=== PATIENT | female | born 1955 | race American Indian/Alaskan Native ===

== ENCOUNTER 2018-11-24 11:18 | Inpatient (IN) | payer MEDICARE, MEDICAID ==
[2018-11-24 18:44] VITALS: BMI 23.3
[2018-11-25] MEDS: Pantoprazole 20 mg EC Tab PO SCH ×2 (06:28→16:40)
[2018-11-25 06:52] LABS: ALB/GLOB RATIO 1.2 (1.0-2.1); ALBUMIN 3.7 g/dL (3.5-5.0); ALT/SGPT 87 U/L (9-52); AST/SGOT 73 U/L (14-36); BLOOD UREA NITROGEN 19 mg/dl (7-17); CALCIUM 9.4 mg/dL (8.4-10.2); GFR NON-AFRICAN AMERICAN > 60
[2018-11-25 06:53] LABS: HEMOGLOBIN 12.8 g/dL (12.0-16.0); MEAN CELL VOLUME 68.7 fl (81.0-99.0); MEAN CORPUSCULAR HEMOGLOBIN 22.2 pg (27.0-31.0); MEAN CORPUSCULAR HGB CONC 32.4 g/dL (33.0-37.0); RBC 5.77 Mil/uL (3.80-5.20); RED CELL DISTRIBUTION WIDTH 14.3 % (11.5-14.5); WHITE BLOOD COUNT 7.7 K/uL (4.8-10.8)
[2018-11-25] MEDS ORDERED: Influenza Vaccine 60 mcg/0.5 mL SYR (4YR UP) IM ONE ×2 (07:25→09:00)
[2018-11-25] MEDS: Potassium Chloride 20 mEq ER Tab PO SCH (07:57)
[2018-11-25] MEDS ORDERED: Pneumococcal 23-Valent Vaccine IM ONE (09:00)
--- NOTE | 2018-11-25 12:11 | PCM.OPOC ---
Physiatry Overall Plan of Care - Overall Plan of Care Estimated Length of Stay in Weeks: 3 Rehab Impairment: Mobility, Gait, Cognition, Speech, Balance, Coordination Etiologic Diagnosis: Cerebrovascular Accident Rehab/Medical Prognosis: Fair - Anticipated Interventions Physical Therapy:: Yes Number of Hours: 1 Number of times per week: 5 Number of Week(s) Duration: 3 Occupational Therapy:: Yes Number of Hours: 1 Number of times per week: 5 Number of Week(s) Duration: 3 Speech Therapy:: Yes Number of Hours: 1 Number of times per week: 5 Number of Week(s) Duration: 1 Recreational Therapy:: Yes Number of Hours: 1 Number of times per week: 5 Number of Week(s) Duration: 3 - Therapy Goals Bed Mobility: Independent Ambulation: Independent Functional Positional Changes:: Independent - Functional Status Prior to Admission: independent Current Status: needs assistance - Functional Outcomes Functional Outcomes: good - Discharge Plan Identification of Barriers to Discharge: Cognition Discharge Destination: Home
--- NOTE | 2018-11-25 12:13 | PCM.PSYTMC ---
Acute Rehab Team Conference - - Vital Signs: Vital Signs (Last 8 Hours): Vital Signs 11/25/18 11/25/18 11/25/18 07:50 08:00 09:21 Temperature 98.2 F 98.2 F Pulse Rate 74 74 74 Respiratory 18 18 Rate Blood Pressure 122/79 122/79 122/79 O2 Sat by Pulse 100 Oximetry Pain: 0 - Precautions: Precautions: Fall Prevention, Aspiration, Pressure Ulcer - Consults: Comment: Dr. Marion - Toileting: Toileting: Contact Guard - Bladder Management: Bladder Pattern: Normal Voiding Method: Toilet, Bedpan Bladder Management: Contact Guard - Transfers: Transfers: Contact Guard - ADL's: ADL's: Contact Guard - Goals/Time Frame: Comment: increase independance - Provider: Registered Nurse:: Melia Mantilla Nutrition - Current Diet Current Diet/Supplement/Feedings: Heart Healthy diet - Appetite Percent Meal Consumed: 75-100% - Assessment/Goals/Time Frame Assessments/Goals/Time Frame: To follow as per nutrition protocol - Provider Provider: Debra Coe Case Management - Psychosocial Assessment Support Systems: Stacey Vasquez ODEC) [phone] Psychological Interventions/Needs: patient is AAOx3 and able to verbalize needs. Discharge Concerns: Pt has a history of multiple falls and substance abuse. Pt is still unsteady. Patient/Family Meeting: CM met with patient and rehab team. Intervention/Goal/Outcome: 1. Goal: Intermittent Supervision 2. Plan: team con ference with Dr. Marion 3. DME needs 4. complete patient's psychosocial assessment 5. f/u appointments 6. emotional support - Discharge Plan Discharge Plan: Home with services Home Services: [facility]? - Provider Provider: Stefanie Dolan License Number: [id number] Rehabilitation Plan - Treatment Plan Treatment Plan: Physical Therapy, Occupational Therapy, Speech, Dietary, Patient/Family Education - Recommendation Recommendation: Physical Therapy, Occupational Therapy, Speech, Dietary, Patient/Family Education - Discharge Plan Discharge to: Home
--- NOTE | 2018-11-25 13:09 | PCM.CPAPS ---
History of Present Illness - History of Present Illness History of Present Illness: 63 year old female admitted to acute rehab with diagnosis of CVa,HTN, syncope, R ankle fracture now for rehab Review of Systems - Musculoskeletal Musculoskeletal: Abnormal Gait, Muscle Weakness Past Patient History - Infectious Disease Hx of Infectious Diseases: None - Past Medical History & Family History Past Medical History?: Yes - Past Social History Smoking Status: Current Some Days Smoker - CARDIAC Hx Cardiac Disorders: Yes Hx Hypertension: Yes - PULMONARY Hx Respiratory Disorders: No - NEUROLOGICAL Hx Neurological Disorder: Yes Hx Syncope: Yes - HEENT Hx HEENT Problems: No - RENAL Hx Chronic Kidney Disease: No - ENDOCRINE/METABOLIC Hx Endocrine Disorders: No - HEMATOLOGICAL/ONCOLOGICAL Hx Blood Disorders: Yes Hx Hepatitis C: Yes - INTEGUMENTARY Hx Dermatological Problems: No - MUSCULOSKELETAL/RHEUMATOLOGICAL Hx Musculoskeletal Disorders: Yes Hx Falls: Yes Hx Rhabdomyolysis: Yes - GASTROINTESTINAL Hx Gastrointestinal Disorders: No - GENITOURINARY/GYNECOLOGICAL Hx Genitourinary Disorders: No - PSYCHIATRIC Hx Substance Use: Yes (Opioid abuse, Heroin Abuse) - SURGICAL HISTORY Hx Surgeries: Yes Other/Comment: Hx: Right Ankle ORIF 2017 - ANESTHESIA Hx Anesthesia: Yes Hx Anesthesia Reactions: No Meds Allergies/Adverse Reactions: Allergies Allergy/AdvReac Type Severity Reaction Status Date / Time No Known Allergies Allergy Verified 11/24/18 20:12 - Medications Medications: Current Medications Amlodipine Besylate (Norvasc) 10 mg PO DAILY [facility] Last Admin: 11/25/18 08:00 Dose: 10 mg Aspirin (Ecotrin) 81 mg PO DAILY [facility] Last Admin: 11/25/18 08:00 Dose: 81 mg Atorvastatin Calcium (Lipitor) 80 mg PO HS [facility] Last Admin: 11/24/18 21:41 Dose: 80 mg Clonidine HCl (Catapres) 0.1 mg PO Q6H PRN PRN Reason: SBP > 150 Losartan Potassium (Cozaar) 100 mg PO HS [facility] Last Admin: 11/24/18 21:41 Dose: 100 mg Ondansetron HCl (Zofran Inj) 4 mg IVP Q6H PRN PRN Reason: Nausea/Vomiting Ondansetron HCl (Zofran Odt) 4 mg PO Q8H PRN PRN Reason: Nausea/Vomiting Pantoprazole Sodium (Protonix Ec Tab) 20 mg PO 0600,1600 [facility] Last Admin: 11/25/18 06:28 Dose: 20 mg Potassium Chloride (K-Dur 20 Meq Er Tab) 40 meq PO BRK [facility] Last Admin: 11/25/18 07:57 Dose: 40 meq Tramadol HCl (Ultram) 50 mg PO TID PRN PRN Reason: Pain 4-10 Zolpidem Tartrate (Ambien) 5 mg PO HS PRN PRN Reason: Insomnia Physical Exam - Constitutional Appears: Well - Eye Exam Eye Exam: EOMI, Normal appearance, PERRL Pupil Exam: NORMAL ACCOMODATION, PERRL - ENT Exam ENT Exam: Mucous Membranes Moist, Normal Exam - Neck Exam Neck exam: Positive for: Normal Inspection - Respiratory Exam Respiratory Exam: Clear to Auscultation Bilateral, NORMAL BREATHING PATTERN - Cardiovascular Exam Cardiovascular Exam: REGULAR RHYTHM - GI/Abdominal Exam GI & Abdominal Exam: Normal Bowel Sounds - Rectal Exam Rectal Exam: NORMAL INSPECTION - Exam External exam: NORMAL EXTERNAL EXAM - Extremities Exam Extremities exam: Positive for: normal inspection - Back Exam Back exam: NORMAL INSPECTION - Neurological Exam Neurological exam: Alert, CN II-XII Intact Additional comments: muscle strength 3/5 problems with balance and coordination - Psychiatric Exam Psychiatric exam: Normal Affect, Normal Mood - Skin Skin Exam: Intact, Normal Color Results - Vital Signs Recent Vital Signs: Last Vital Signs Temp 98.2 F 11/25/18 09:21 Pulse 74 11/25/18 09:21 Resp 18 11/25/18 09:21 BP 122/79 11/25/18 09:21 Pulse Ox 100 11/25/18 09:21 - Labs Result Diagrams: 11/25/18 06:29 11/25/18 06:29 Labs: Laboratory Results - last 24 hr 11/25/18 11/25/18 06:29 06:29 WBC 7.7 RBC 5.77 H Hgb 12.8 Hct 39.7 MCV 68.7 L MCH 22.2 L MCHC 32.4 L RDW 14.3 Plt Count 328 Sodium 137 Potassium 4.1 Chloride 104 Carbon Dioxide 26 Anion Gap 11 BUN 19 H Creatinine 0.7 Est GFR ( Amer) > 60 Est GFR (Non-Af Amer) > 60 Random Glucose 106 H Calcium 9.4 Total Bilirubin 0.5 AST 73 H D ALT 87 H Alkaline Phosphatase 75 Total Protein 6.9 Albumin 3.7 Globulin 3.2 Albumin/Globulin Ratio 1.2 Assessment & Plan (1) Syncope Status: Acute (2) CVA (cerebral vascular accident) Assessment and Plan: patient admitted for acute rehab with diagnosis of CVa of PT, Ot , rec and speech therapy. other diagnosi of HTn , syncope, r ankle fracute plan for Dc for home. Golas for Modified independence, previously In dependent now needs assistance. Lenght of stay for 3 weeks Status: Acute - Functional Status Prior to Admission: Independent Current Status: Now needs assistance, in adls, transfers and gait Impairment Code: cva 01.1
--- NOTE | 2018-11-26 00:38 | CP.PCM.HP ---
History of Present Illness - History of Present Illness History of Present Illness: CC: Subacue CVA, and Chronic Hamorrhage, and recurrent Falls HPI: A 63 years old female with past medical history of hypertension had a syncopal episode on 11/15/18, and again another fall on 11/15/18 this time hitting her head when she went to the emergency room of [facility]. On CT head on the same day showed possible subacute right thalamic infarct. On MRI of the brain showed chronic appearing hematoma in the right posterior thalamus. Which was read as a chronic hematoma. Patient admits recurrent falls. Patient was transferred to [facility] the acute [facility]hab due to subacute CVA and multiple falls. Present on Admission - Present on Admission Any Indicators Present on Admission: No Review of Systems - Review of Systems All systems: reviewed and no additional remarkable complaints except Review of Systems: all 12 are negative except as per HPI Past Patient History - Infectious Disease Hx of Infectious Diseases: None - Past Medical History & Family History Past Medical History?: Yes - Past Social History Smoking Status: Current Some Days Smoker - CARDIAC Hx Cardiac Disorders: Yes Hx Hypertension: Yes - PULMONARY Hx Respiratory Disorders: No - NEUROLOGICAL Hx Neurological Disorder: Yes Hx Syncope: Yes - HEENT Hx HEENT Problems: No - RENAL Hx Chronic Kidney Disease: No - ENDOCRINE/METABOLIC Hx Endocrine Disorders: No - HEMATOLOGICAL/ONCOLOGICAL Hx Blood Disorders: Yes Hx Hepatitis C: Yes - INTEGUMENTARY Hx Dermatological Problems: No - MUSCULOSKELETAL/RHEUMATOLOGICAL Hx Musculoskeletal Disorders: Yes Hx Falls: Yes Hx Rhabdomyolysis: Yes - GASTROINTESTINAL Hx Gastrointestinal Disorders: No - GENITOURINARY/GYNECOLOGICAL Hx Genitourinary Disorders: No - PSYCHIATRIC Hx Substance Use: Yes (Opioid abuse, Heroin Abuse) - SURGICAL HISTORY Hx Surgeries: Yes Other/Comment: Hx: Right Ankle ORIF 2017 - ANESTHESIA Hx Anesthesia: Yes Hx Anesthesia Reactions: No Meds Allergies/Adverse Reactions: Allergies Allergy/AdvReac Type Severity Reaction Status Date / Time No Known Allergies Allergy Verified 11/24/18 20:12 Physical Exam - Constitutional Appears: No Acute Distress, Chronically Ill - Head Exam Head Exam: ATRAUMATIC, NORMAL INSPECTION, NORMOCEPHALIC - Eye Exam Eye Exam: EOMI, Normal appearance, PERRL Pupil Exam: NORMAL ACCOMODATION, PERRL - ENT Exam ENT Exam: Mucous Membranes Moist, Normal Exam - Neck Exam Neck exam: Positive for: Normal Inspection - Respiratory Exam Respiratory Exam: Clear to Auscultation Bilateral, NORMAL BREATHING PATTERN - Cardiovascular Exam Cardiovascular Exam: REGULAR RHYTHM, +S1, +S2 - GI/Abdominal Exam GI & Abdominal Exam: Normal Bowel Sounds, Soft. absent: Tenderness - Extremities Exam Extremities exam: Positive for: normal inspection - Back Exam Back exam: NORMAL INSPECTION - Neurological Exam Neurological exam: Abnormal Gait, Alert, CN II-XII Intact, Motor Sensory Deficit, Oriented x3, Reflexes Normal - Psychiatric Exam Psychiatric exam: Normal Affect, Normal Mood - Skin Skin Exam: Dry, Intact, Normal Color, Warm Results - Vital Signs Recent Vital Signs: Last Vital Signs Temp 97.3 F L 11/25/18 22:00 Pulse 76 11/25/18 22:00 Resp 20 11/25/18 22:00 BP 123/64 11/25/18 22:00 Pulse Ox 99 11/25/18 22:00 - Labs Result Diagrams: 11/25/18 06:29 11/25/18 06:29 Labs: Laboratory Results - last 24 hr 11/25/18 11/25/18 06:29 06:29 WBC 7.7 RBC 5.77 H Hgb 12.8 Hct 39.7 MCV 68.7 L MCH 22.2 L MCHC 32.4 L RDW 14.3 Plt Count 328 Sodium 137 Potassium 4.1 Chloride 104 Carbon Dioxide 26 Anion Gap 11 BUN 19 H Creatinine 0.7 Est GFR ( Amer) > 60 Est GFR (Non-Af Amer) > 60 Random Glucose 106 H Calcium 9.4 Total Bilirubin 0.5 AST 73 H D ALT 87 H Alkaline Phosphatase 75 Total Protein 6.9 Albumin 3.7 Globulin 3.2 Albumin/Globulin Ratio 1.2 Assessment & Plan (1) Hypertension Status: Acute (2) CVA (cerebral vascular accident) Assessment and Plan: Subacute Thalamic and Chronic Hemorrhagic CVA Status: Acute (3) Falls frequently Status: Acute (4) Syncope Status: Acute - Assessment and Plan (Free Text) Plan: C/w ASA, Statin, All Home meds Physiatry Consult PT/OT, and Speech Therapy
[2018-11-26] MEDS: Pantoprazole 20 mg EC Tab PO SCH ×2 (06:11→15:16)
[2018-11-26] MEDS: Potassium Chloride 20 mEq ER Tab PO SCH (08:35)
--- NOTE | 2018-11-26 23:33 | CP.PCM.PN ---
Subjective - Date & Time of Evaluation Date of Evaluation: 11/26/18 Time of Evaluation: 18:15 - Subjective Subjective: Seen and examined at the bedside. Complaining of insomnia. Otherwise feeling better. Children at the bedside. Objective - Vital Signs/Intake and Output Vital Signs (last 24 hours): Temp Pulse Resp BP Pulse Ox 97.2 F L 68 18 142/81 98 11/26/18 10:00 11/26/18 21:14 11/26/18 10:00 11/26/18 21:14 11/26/18 10:00 - Medications Medications: Current Medications Amlodipine Besylate (Norvasc) 10 mg PO DAILY [facility] Last Admin: 11/26/18 08:36 Dose: 10 mg Aspirin (Ecotrin) 81 mg PO DAILY [facility] Last Admin: 11/26/18 08:37 Dose: 81 mg Atorvastatin Calcium (Lipitor) 80 mg PO HS [facility] Last Admin: 11/26/18 21:14 Dose: 80 mg Clonidine HCl (Catapres) 0.1 mg PO Q6H PRN PRN Reason: SBP > 150 Lactulose (Enulose) 20 gm PO BID PRN PRN Reason: Constipation Last Admin: 11/26/18 20:11 Dose: 20 gm Losartan Potassium (Cozaar) 100 mg PO HS [facility] Last Admin: 11/26/18 21:14 Dose: 100 mg Ondansetron HCl (Zofran Inj) 4 mg IVP Q6H PRN PRN Reason: Nausea/Vomiting Ondansetron HCl (Zofran Odt) 4 mg PO Q8H PRN PRN Reason: Nausea/Vomiting Last Admin: 11/26/18 13:16 Dose: 4 mg Pantoprazole Sodium (Protonix Ec Tab) 20 mg PO 0600,1600 [facility] Last Admin: 11/26/18 15:16 Dose: 20 mg Potassium Chloride (K-Dur 20 Meq Er Tab) 40 meq PO BRK [facility] Last Admin: 11/26/18 08:35 Dose: 40 meq Tramadol HCl (Ultram) 50 mg PO TID PRN PRN Reason: Pain 4-10 Last Admin: 11/25/18 18:24 Dose: 50 mg Zolpidem Tartrate (Ambien) 5 mg PO HS PRN PRN Reason: Insomnia Last Admin: 11/26/18 21:24 Dose: 5 mg - Labs Labs: 11/25/18 06:29 11/25/18 06:29 Assessment and Plan (1) Insomnia Status: Acute (2) CVA (cerebral vascular accident) Status: Acute (3) Falls frequently Status: Acute (4) Hypertension Status: Acute (5) Opioid abuse Status: Acute (6) Syncope Status: Acute - Assessment and Plan (Free Text) Plan: Trazodone 100 mg p.o. nightly Continue PT/OT
[2018-11-27] MEDS: Pantoprazole 20 mg EC Tab PO SCH ×3 (06:34→17:23)
--- NOTE | 2018-11-27 08:02 | CP.PCM.CON ---
History of Present Illness - History of Present Illness History of Present Illness: Pt is a 63 year old female admitted to [facility] following a reported CVA. Pt also reported a history of HTN. See medical record for complete medical history and medication list. Social History: pt lives in [place] with her son. Pt is after 40 years of marriage. He helps with shopping. Pt has a daughter and grandaughter who reside close by. Pt reported very positive relaitonships with family members. Ed/Voc: pt raised in [place], left and worked as a homemaker. Pt deneid a psych history. Pt reported a history of heroine use years ago, then methadone. She reported no methadone use in the last number of years apart from pain?. Medical record contradicts the above. Pt discussed her recent CVA and adjustment. Pt discussed the caretaking on the unit and decline in distress with gains made. MSE: pt alert, oriented x3, relevant/coherent, no psychosis, affect constricted until discussing her grandaughter, no si no hi ideation, no psychosis. Plan: continued sup therapy Dx: Adjustment Dx with depression Past Patient History - Infectious Disease Hx of Infectious Diseases: None - Past Medical History & Family History Past Medical History?: Yes - Past Social History Smoking Status: Current Some Days Smoker - CARDIAC Hx Cardiac Disorders: Yes Hx Hypertension: Yes - PULMONARY Hx Respiratory Disorders: No - NEUROLOGICAL Hx Neurological Disorder: Yes Hx Syncope: Yes - HEENT Hx HEENT Problems: No - RENAL Hx Chronic Kidney Disease: No - ENDOCRINE/METABOLIC Hx Endocrine Disorders: No - HEMATOLOGICAL/ONCOLOGICAL Hx Blood Disorders: Yes Hx Hepatitis C: Yes - INTEGUMENTARY Hx Dermatological Problems: No - MUSCULOSKELETAL/RHEUMATOLOGICAL Hx Musculoskeletal Disorders: Yes Hx Falls: Yes Hx Rhabdomyolysis: Yes - GASTROINTESTINAL Hx Gastrointestinal Disorders: No - GENITOURINARY/GYNECOLOGICAL Hx Genitourinary Disorders: No - PSYCHIATRIC Hx Substance Use: Yes (Opioid abuse, Heroin Abuse) - SURGICAL HISTORY Hx Surgeries: Yes Other/Comment: Hx: Right Ankle ORIF 2017 - ANESTHESIA Hx Anesthesia: Yes Hx Anesthesia Reactions: No Meds Allergies/Adverse Reactions: Allergies Allergy/AdvReac Type Severity Reaction Status Date / Time No Known Allergies Allergy Verified 11/24/18 20:12 - Medications Medications: Current Medications Amlodipine Besylate (Norvasc) 10 mg PO DAILY [facility] Last Admin: 11/26/18 08:36 Dose: 10 mg Aspirin (Ecotrin) 81 mg PO DAILY [facility] Last Admin: 11/26/18 08:37 Dose: 81 mg Atorvastatin Calcium (Lipitor) 80 mg PO HS [facility] Last Admin: 11/26/18 21:14 Dose: 80 mg Clonidine HCl (Catapres) 0.1 mg PO Q6H PRN PRN Reason: SBP > 150 Lactulose (Enulose) 20 gm PO BID PRN PRN Reason: Constipation Last Admin: 11/26/18 20:11 Dose: 20 gm Losartan Potassium (Cozaar) 100 mg PO HS [facility] Last Admin: 11/26/18 21:14 Dose: 100 mg Ondansetron HCl (Zofran Inj) 4 mg IVP Q6H PRN PRN Reason: Nausea/Vomiting Ondansetron HCl (Zofran Odt) 4 mg PO Q8H PRN PRN Reason: Nausea/Vomiting Last Admin: 11/26/18 13:16 Dose: 4 mg Pantoprazole Sodium (Protonix Ec Tab) 20 mg PO 0600,1600 [facility] Last Admin: 11/27/18 06:34 Dose: 20 mg Potassium Chloride (K-Dur 20 Meq Er Tab) 40 meq PO BRK [facility] Last Admin: 11/26/18 08:35 Dose: 40 meq Tramadol HCl (Ultram) 50 mg PO TID PRN PRN Reason: Pain 4-10 Last Admin: 11/25/18 18:24 Dose: 50 mg Zolpidem Tartrate (Ambien) 5 mg PO HS PRN PRN Reason: Insomnia Last Admin: 11/26/18 21:24 Dose: 5 mg Results - Vital Signs Recent Vital Signs: Last Vital Signs Temp 97.3 F L 11/26/18 21:14 Pulse 69 11/26/18 21:14 Resp 20 11/26/18 21:14 BP 142/81 11/26/18 21:14 Pulse Ox 99 11/26/18 21:14 - Labs Result Diagrams: 11/25/18 06:29 11/25/18 06:29
[2018-11-27] MEDS: Potassium Chloride 20 mEq ER Tab PO SCH (08:24)
--- NOTE | 2018-11-27 15:10 | CP.PCM.PN ---
Subjective - Date & Time of Evaluation Date of Evaluation: 11/27/18 Time of Evaluation: 15:00 - Subjective Subjective: patient with mild nausea no vomiting no pain Objective - Vital Signs/Intake and Output Vital Signs (last 24 hours): Temp Pulse Resp BP Pulse Ox 98.2 F 82 18 128/79 98 11/27/18 10:00 11/27/18 10:00 11/27/18 10:00 11/27/18 10:00 11/27/18 10:00 - Medications Medications: Current Medications Amlodipine Besylate (Norvasc) 10 mg PO DAILY [facility] Last Admin: 11/27/18 08:24 Dose: 10 mg Aspirin (Ecotrin) 81 mg PO DAILY [facility] Last Admin: 11/27/18 08:24 Dose: 81 mg Atorvastatin Calcium (Lipitor) 80 mg PO HS [facility] Last Admin: 11/26/18 21:14 Dose: 80 mg Clonidine HCl (Catapres) 0.1 mg PO Q6H PRN PRN Reason: SBP > 150 Lactulose (Enulose) 20 gm PO BID PRN PRN Reason: Constipation Last Admin: 11/26/18 20:11 Dose: 20 gm Losartan Potassium (Cozaar) 100 mg PO HS [facility] Last Admin: 11/26/18 21:14 Dose: 100 mg Ondansetron HCl (Zofran Inj) 4 mg IVP Q6H PRN PRN Reason: Nausea/Vomiting Ondansetron HCl (Zofran Odt) 4 mg PO Q8H PRN PRN Reason: Nausea/Vomiting Last Admin: 11/26/18 13:16 Dose: 4 mg Pantoprazole Sodium (Protonix Ec Tab) 20 mg PO 0600,1600 [facility] Last Admin: 11/27/18 06:34 Dose: 20 mg Potassium Chloride (K-Dur 20 Meq Er Tab) 40 meq PO BRK [facility] Last Admin: 11/27/18 08:24 Dose: 40 meq Tramadol HCl (Ultram) 50 mg PO TID PRN PRN Reason: Pain 4-10 Last Admin: 11/25/18 18:24 Dose: 50 mg Zolpidem Tartrate (Ambien) 5 mg PO HS PRN PRN Reason: Insomnia Last Admin: 11/26/18 21:24 Dose: 5 mg - Labs Labs: 11/25/18 06:29 04/17/19 06:29 - Constitutional Appears: Well - Head Exam Head Exam: ATRAUMATIC, NORMAL INSPECTION, NORMOCEPHALIC - Eye Exam Eye Exam: EOMI, Normal appearance, PERRL Pupil Exam: NORMAL ACCOMODATION - ENT Exam ENT Exam: Mucous Membranes Moist, Normal Exam - Neck Exam Neck Exam: Full ROM, Normal Inspection - Respiratory Exam Respiratory Exam: Clear to Ausculation Bilateral, NORMAL BREATHING PATTERN - Cardiovascular Exam Cardiovascular Exam: REGULAR RHYTHM - GI/Abdominal Exam GI & Abdominal Exam: Soft, Normal Bowel Sounds - Rectal Exam Rectal Exam: NORMAL INSPECTION - Exam External exam: NORMAL EXTERNAL EXAM - Extremities Exam Extremities Exam: Full ROM, Normal Capillary Refill, Normal Inspection - Back Exam Back Exam: NORMAL INSPECTION - Neurological Exam Neurological Exam: Alert Neuro motor strength exam: Left Upper Extremity: 3, Right Upper Extremity: 3, Left Lower Extremity: 3, Right Lower Extremity: 3 - Psychiatric Exam Psychiatric exam: Normal Affect, Normal Mood - Skin Skin Exam: Dry, Intact Assessment and Plan (1) Syncope Status: Acute (2) CVA (cerebral vascular accident) Assessment & Plan: plan for, physical, occupational, rec and speech therapy psych eval Status: Acute
--- NOTE | 2018-11-27 15:14 | CP.PCM.PN ---
Subjective - Date & Time of Evaluation Date of Evaluation: 11/26/18 Time of Evaluation: 19:00 - Subjective Subjective: no acute complaints at present Objective - Vital Signs/Intake and Output Vital Signs (last 24 hours): Temp Pulse Resp BP Pulse Ox 98.2 F 82 18 128/79 98 11/27/18 10:00 11/27/18 10:00 11/27/18 10:00 11/27/18 10:00 11/27/18 10:00 - Medications Medications: Current Medications Amlodipine Besylate (Norvasc) 10 mg PO DAILY [facility] Last Admin: 11/27/18 08:24 Dose: 10 mg Aspirin (Ecotrin) 81 mg PO DAILY [facility] Last Admin: 11/27/18 08:24 Dose: 81 mg Atorvastatin Calcium (Lipitor) 80 mg PO HS [facility] Last Admin: 11/26/18 21:14 Dose: 80 mg Clonidine HCl (Catapres) 0.1 mg PO Q6H PRN PRN Reason: SBP > 150 Lactulose (Enulose) 20 gm PO BID PRN PRN Reason: Constipation Last Admin: 11/26/18 20:11 Dose: 20 gm Losartan Potassium (Cozaar) 100 mg PO HS [facility] Last Admin: 11/26/18 21:14 Dose: 100 mg Ondansetron HCl (Zofran Inj) 4 mg IVP Q6H PRN PRN Reason: Nausea/Vomiting Ondansetron HCl (Zofran Odt) 4 mg PO Q8H PRN PRN Reason: Nausea/Vomiting Last Admin: 11/26/18 13:16 Dose: 4 mg Pantoprazole Sodium (Protonix Ec Tab) 20 mg PO 0600,1600 [facility] Last Admin: 11/27/18 06:34 Dose: 20 mg Potassium Chloride (K-Dur 20 Meq Er Tab) 40 meq PO BRK [facility] Last Admin: 11/27/18 08:24 Dose: 40 meq Tramadol HCl (Ultram) 50 mg PO TID PRN PRN Reason: Pain 4-10 Last Admin: 11/25/18 18:24 Dose: 50 mg Zolpidem Tartrate (Ambien) 5 mg PO HS PRN PRN Reason: Insomnia Last Admin: 11/26/18 21:24 Dose: 5 mg - Labs Labs: 11/25/18 06:29 11/25/18 06:29 - Constitutional Appears: Well - Head Exam Head Exam: ATRAUMATIC, NORMAL INSPECTION, NORMOCEPHALIC - Eye Exam Eye Exam: EOMI, Normal appearance, PERRL Pupil Exam: NORMAL ACCOMODATION - ENT Exam ENT Exam: Mucous Membranes Moist, Normal Exam - Neck Exam Neck Exam: Full ROM, Normal Inspection - Respiratory Exam Respiratory Exam: Clear to Ausculation Bilateral, NORMAL BREATHING PATTERN - Cardiovascular Exam Cardiovascular Exam: REGULAR RHYTHM - GI/Abdominal Exam GI & Abdominal Exam: Soft, Normal Bowel Sounds - Rectal Exam Rectal Exam: NORMAL INSPECTION - Exam External exam: NORMAL EXTERNAL EXAM - Extremities Exam Extremities Exam: Full ROM, Normal Capillary Refill - Back Exam Back Exam: NORMAL INSPECTION - Neurological Exam Neurological Exam: Alert, Awake Neuro motor strength exam: Left Upper Extremity: 3, Right Upper Extremity: 3, Left Lower Extremity: 3, Right Lower Extremity: 3 - Psychiatric Exam Psychiatric exam: Normal Affect, Normal Mood - Skin Skin Exam: Dry, Intact Assessment and Plan (1) Syncope Status: Acute (2) CVA (cerebral vascular accident) Assessment & Plan: plan for range of motion, strengthening, transfers and gait training, pain treatment Status: Acute
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
[2018-11-28] MEDS: Pantoprazole 20 mg EC Tab PO SCH ×2 (06:08→16:58)
[2018-11-28] MEDS: Potassium Chloride 20 mEq ER Tab PO SCH (09:05)
[2018-11-29] MEDS: Pantoprazole 20 mg EC Tab PO SCH ×3 (07:07→16:59)
[2018-11-29] MEDS: Potassium Chloride 20 mEq ER Tab PO SCH (08:12)
--- NOTE | 2018-11-29 17:25 | CP.PCM.CON ---
History of Present Illness - History of Present Illness History of Present Illness: Neurology Consultation Note: Consult requested by Dr. Thomas Mrs. Vasquez is a 63-year-old woman with a past medical history of previous thalamic stroke, heroin abuse, previous falls and previous seizure in 2015. The patient states that she only had one seizure in her life. The most recent fall was not accompanied by any loss of consciousness. Currently, the patient denies any focal deficits or limitations. Review of Systems - Constitutional Constitutional: As Per HPI - EENT Eyes: absent: As Per HPI, Blind Spots, Blurred Vision, Change in Vision, Decreased Night Vision, Diplopia, Discharge, Dry Eye, Exophthalmos, Floaters, Irritation, Itchy Eyes, Loss of Peripheral Vision, Pain, Photophobia, Requires Corrective Lenses, Sees Flashes, Spots in Vision, Tunnel Vision, Other Visual Disturbances, Loss of Vision, Other Ears: absent: As Per HPI, Decreased Hearing, Ear Discharge, Ear Pain, Tinnitus, Abnormal Hearing, Disequilibrium, Dizziness, Other Nose/Mouth/Throat: absent: As Per HPI, Epistaxis, Nasal Congestion, Nasal Discharge, Nasal Obstruction, Nasal Trauma, Nose Pain, Post Nasal Drip, Sinus Pain, Sinus Pressure, Bleeding Gums, Change in Voice, Dental Pain, Dry Mouth, Dysphagia, Halitosis, Hoarsness, Lip Swelling, Mouth Lesions, Mouth Pain, Odynophagia, Sore Throat, Throat Swelling, Tongue Swelling, Facial Pain, Neck Pain, Neck Mass, Other - Cardiovascular Cardiovascular: absent: As Per HPI, Acrocyanosis, Chest Pain, Chest Pain at Rest, Chest Pain with Activity, Claudication, Diaphoresis, Dyspnea, Dyspnea on Exertion, Edema, Irregular Heart Rhythm, Pain Radiating to Arm/Neck/Jaw, Leg Edema, Leg Ulcers, Lightheadedness, Orthopnea, Palpitations, Paroxysmal Nocturnal Dyspnea, Pedal Edema, Radiating Pain, Rapid Heart Rate, Slow Heart Rate, Syncope, Other - Respiratory Respiratory: absent: As Per HPI, Cough, Dyspnea, Hemoptysis, Dyspnea on Exertion, Wheezing, Snoring, Stridor, Pain on Inspiration, Chest Congestion, Excessive Mucous Production, Change in Mucous Color, Pain with Coughing, Other - Gastrointestinal Gastrointestinal: absent: As Per HPI, Abdominal Pain, Belching, Bloating, Change in Bowel Habits, Change in Stool Character, Coffee Ground Emesis, Constipation, Cramping, Diarrhea, Dyspepsia, Dysphagia, Early Satiety, Excessive Flatus, Fecal Incontinence, Heartburn, Hematemesis, Hematochezia, Loose Stools, Melena, Jose sea, Odynophagia, Temesmus, Vomiting, Other - Musculoskeletal Musculoskeletal: absent: As Per HPI, Abnormal Gait, Arthralgias, Atrophy, Back Pain, Deformity, Joint Swelling, Limited Range of Motion, Loss of Height, Muscle Cramps, Muscle Weakness, Myalgias, Neck Pain, Numbness, Radiating Pain into Limb, Stiffness, Tingling, Other - Integumentary Integumentary: absent: As Per HPI, Acne, Alopecia, Bleeding Lesions, Change in Hair, Change in Nails, Change in Pigmentation, Changing Lesions, Dry Skin, Erythema, Furuncle, Hirsutism, Lesions, New Lesions, Non-Healing Lesions, Photosensitivity, Pruritus, Rash, Skin Pain, Skin Ulcer, Sores, Striae, Swelling, Unusual Bruising, Wounds, Jaundice, Other - Neurological Neurological: As Per HPI - Psychiatric Psychiatric: absent: As Per HPI, Abnormal Sleep Pattern, Anhedonia, Anxiety, Auditory Hallucinations, Behavioral Changes, Change in Appetite, Change in Libido, Confusion, Depression, Difficulty Concentrating, Hallucinations, Homicidal Ideation, Hopelessness, Irritability, Memory Loss, Mood Swings, Panic Attacks, Paranoia, Suicidal Ideation, Visual Hallucinations, Tactile Hallucinations, Other - Endocrine Endocrine: absent: As Per HPI, Change in Body Appearance, Change in Libido, Cold Intolorance, Deepening of Voice, Excessive Sweating, Fatigue, Flushing, Heat Intolorance, Increase in Ring/Shoe/Hat Size, Palpitations, Polydipsia, Polyphagia, Polyuria, Other - Hematologic/Lymphatic Hematologic: absent: As Per HPI, Easy Bleeding, Easy Bruising, Lymphadenopathy, Other Past Patient History - Infectious Disease Hx of Infectious Diseases: None - Past Medical History & Family History Past Medical History?: Yes - Past Social History Smoking Status: Current Some Days Smoker - CARDIAC Hx Cardiac Disorders: Yes Hx Hypertension: Yes - PULMONARY Hx Respiratory Disorders: No - NEUROLOGICAL Hx Neurological Disorder: Yes Hx Syncope: Yes - HEENT Hx HEENT Problems: No - RENAL Hx Chronic Kidney Disease: No - ENDOCRINE/METABOLIC Hx Endocrine Disorders: No - HEMATOLOGICAL/ONCOLOGICAL Hx Blood Disorders: Yes Hx Hepatitis C: Yes - INTEGUMENTARY Hx Dermatological Problems: No - MUSCULOSKELETAL/RHEUMATOLOGICAL Hx Musculoskeletal Disorders: Yes Hx Falls: Yes Hx Rhabdomyolysis: Yes - GASTROINTESTINAL Hx Gastrointestinal Disorders: No - GENITOURINARY/GYNECOLOGICAL Hx Genitourinary Disorders: No - PSYCHIATRIC Hx Substance Use: Yes (Opioid abuse, Heroin Abuse) - SURGICAL HISTORY Hx Surgeries: Yes Other/Comment: Hx: Right Ankle ORIF 2017 - ANESTHESIA Hx Anesthesia: Yes Hx Anesthesia Reactions: No Meds Allergies/Adverse Reactions: Allergies Allergy/AdvReac Type Severity Reaction Status Date / Time No Known Allergies Allergy Verified 11/24/18 20:12 - Medications Medications: Current Medications Amlodipine Besylate (Norvasc) 10 mg PO DAILY [facility] Last Admin: 11/29/18 08:13 Dose: 10 mg Aspirin (Ecotrin) 81 mg PO DAILY [facility] Last Admin: 11/29/18 08:12 Dose: 81 mg Atorvastatin Calcium (Lipitor) 80 mg PO HS [facility] Last Admin: 11/28/18 21:20 Dose: 80 mg Clonidine HCl (Catapres) 0.1 mg PO Q6H PRN PRN Reason: SBP > 150 Gabapentin (Neurontin) 100 mg PO TID PRN PRN Reason: Anxiety Lactulose (Enulose) 20 gm PO BID PRN PRN Reason: Constipation Last Admin: 11/26/18 20:11 Dose: 20 gm Losartan Potassium (Cozaar) 100 mg PO HS [facility] Last Admin: 11/28/18 21:20 Dose: 100 mg Metoclopramide HCl (Reglan) 5 mg PO Q6 PRN PRN Reason: Nausea/Vomiting Last Admin: 11/29/18 12:38 Dose: 5 mg Pantoprazole Sodium (Protonix Ec Tab) 20 mg PO 0600,1600 [facility] Last Admin: 11/29/18 16:59 Dose: 20 mg Potassium Chloride (K-Dur 20 Meq Er Tab) 40 meq PO BRK [facility] Last Admin: 11/29/18 08:12 Dose: 40 meq Tramadol HCl (Ultram) 50 mg PO TID PRN PRN Reason: Pain 4-10 Last Admin: 11/29/18 00:02 Dose: 50 mg Trazodone HCl (Desyrel) 100 mg PO HS PRN PRN Reason: Insomnia Last Admin: 11/27/18 21:32 Dose: 100 mg Physical Exam - Constitutional Appears: Well - Head Exam Head Exam: ATRAUMATIC, NORMAL INSPECTION, NORMOCEPHALIC - Eye Exam Eye Exam: EOMI, Normal appearance, PERRL Pupil Exam: NORMAL ACCOMODATION, PERRL - ENT Exam ENT Exam: Mucous Membranes Moist, Normal Exam - Neck Exam Neck exam: Positive for: Normal Inspection - Respiratory Exam Respiratory Exam: Clear to Auscultation Bilateral, NORMAL BREATHING PATTERN - Cardiovascular Exam Cardiovascular Exam: REGULAR RHYTHM, +S1, +S2 - GI/Abdominal Exam GI & Abdominal Exam: Normal Bowel Sounds, Soft. absent: Tenderness - Extremities Exam Extremities exam: Positive for: normal inspection - Back Exam Back exam: NORMAL INSPECTION - Neurological Exam Neurological exam: Alert, CN II-XII Intact, Normal Gait, Oriented x3, Reflexes Normal - Psychiatric Exam Psychiatric exam: Normal Affect, Normal Mood - Skin Skin Exam: Dry, Intact, Normal Color, Warm Results - Vital Signs Recent Vital Signs: Last Vital Signs Temp 97.6 F 11/29/18 09:04 Pulse 77 11/29/18 09:04 Resp 20 11/29/18 09:04 BP 124/77 11/29/18 09:04 Pulse Ox 98 11/29/18 09:04 - Labs Result Diagrams: 11/25/18 06:29 11/25/18 06:29 Assessment & Plan (1) Falls frequently Assessment and Plan: The patient denies loss of consciousness or any seizure activity, but does have a history of seizure. Will obtain an EEG and a CT of the head for further evaluation. No other recommendations at this time. Follow up with neurology as an outpatient. Thank you. Status: Acute
--- NOTE | 2018-11-29 23:28 | CP.PCM.PN ---
Subjective - Date & Time of Evaluation Date of Evaluation: 11/27/18 Time of Evaluation: 18:30 - Subjective Subjective: Seen and examined at the bedside. slept well last night. Otherwise feeling better. Objective - Vital Signs/Intake and Output Vital Signs (last 24 hours): Temp Pulse Resp BP Pulse Ox 97.6 F 88 20 146/88 98 11/29/18 09:04 11/29/18 21:08 11/29/18 09:04 11/29/18 21:08 11/29/18 09:04 - Medications Medications: Current Medications Amlodipine Besylate (Norvasc) 10 mg PO DAILY [facility] Last Admin: 11/29/18 08:13 Dose: 10 mg Aspirin (Ecotrin) 81 mg PO DAILY [facility] Last Admin: 11/29/18 08:12 Dose: 81 mg Atorvastatin Calcium (Lipitor) 80 mg PO HS [facility] Last Admin: 11/29/18 21:09 Dose: 80 mg Clonidine HCl (Catapres) 0.1 mg PO Q6H PRN PRN Reason: SBP > 150 Gabapentin (Neurontin) 100 mg PO TID PRN PRN Reason: Anxiety Lactulose (Enulose) 20 gm PO BID PRN PRN Reason: Constipation Last Admin: 11/26/18 20:11 Dose: 20 gm Losartan Potassium (Cozaar) 100 mg PO HS [facility] Last Admin: 11/29/18 21:08 Dose: 100 mg Metoclopramide HCl (Reglan) 5 mg PO Q6 PRN PRN Reason: Nausea/Vomiting Last Admin: 11/29/18 12:38 Dose: 5 mg Pantoprazole Sodium (Protonix Ec Tab) 20 mg PO 0600,1600 [facility] Last Admin: 11/29/18 16:59 Dose: 20 mg Potassium Chloride (K-Dur 20 Meq Er Tab) 40 meq PO BRK [facility] Last Admin: 11/29/18 08:12 Dose: 40 meq Tramadol HCl (Ultram) 50 mg PO TID PRN PRN Reason: Pain 4-10 Last Admin: 11/29/18 20:30 Dose: 50 mg Trazodone HCl (Desyrel) 100 mg PO HS PRN PRN Reason: Insomnia Last Admin: 11/29/18 21:09 Dose: 100 mg - Labs Labs: 11/25/18 06:29 11/25/18 06:29 Assessment and Plan (1) CVA (cerebral vascular accident) Status: Acute (2) Falls frequently Status: Acute (3) Hypertension Status: Acute (4) Insomnia Status: Acute (5) Opioid abuse Status: Acute - Assessment and Plan (Free Text) Plan: Continue current care
--- NOTE | 2018-11-29 23:29 | CP.PCM.PN ---
Subjective - Date & Time of Evaluation Date of Evaluation: 11/28/18 Time of Evaluation: 18:25 - Subjective Subjective: Seen and examined at the bedside. slept well last night. Otherwise feeling better. Objective - Vital Signs/Intake and Output Vital Signs (last 24 hours): Temp Pulse Resp BP Pulse Ox 97.6 F 88 20 146/88 98 11/29/18 09:04 11/29/18 21:08 11/29/18 09:04 11/29/18 21:08 11/29/18 09:04 - Medications Medications: Current Medications Amlodipine Besylate (Norvasc) 10 mg PO DAILY [facility] Last Admin: 11/29/18 08:13 Dose: 10 mg Aspirin (Ecotrin) 81 mg PO DAILY [facility] Last Admin: 11/29/18 08:12 Dose: 81 mg Atorvastatin Calcium (Lipitor) 80 mg PO HS [facility] Last Admin: 11/29/18 21:09 Dose: 80 mg Clonidine HCl (Catapres) 0.1 mg PO Q6H PRN PRN Reason: SBP > 150 Gabapentin (Neurontin) 100 mg PO TID PRN PRN Reason: Anxiety Lactulose (Enulose) 20 gm PO BID PRN PRN Reason: Constipation Last Admin: 11/26/18 20:11 Dose: 20 gm Losartan Potassium (Cozaar) 100 mg PO HS [facility] Last Admin: 11/29/18 21:08 Dose: 100 mg Metoclopramide HCl (Reglan) 5 mg PO Q6 PRN PRN Reason: Nausea/Vomiting Last Admin: 11/29/18 12:38 Dose: 5 mg Pantoprazole Sodium (Protonix Ec Tab) 20 mg PO 0600,1600 [facility] Last Admin: 11/29/18 16:59 Dose: 20 mg Potassium Chloride (K-Dur 20 Meq Er Tab) 40 meq PO BRK [facility] Last Admin: 11/29/18 08:12 Dose: 40 meq Tramadol HCl (Ultram) 50 mg PO TID PRN PRN Reason: Pain 4-10 Last Admin: 11/29/18 20:30 Dose: 50 mg Trazodone HCl (Desyrel) 100 mg PO HS PRN PRN Reason: Insomnia Last Admin: 11/29/18 21:09 Dose: 100 mg - Labs Labs: 11/25/18 06:29 11/25/18 06:29 Assessment and Plan (1) CVA (cerebral vascular accident) Status: Acute (2) Falls frequently Status: Acute (3) Hypertension Status: Acute (4) Insomnia Status: Acute (5) Opioid abuse Status: Acute (6) Syncope Status: Acute - Assessment and Plan (Free Text) Plan: Continue current care
--- NOTE | 2018-11-29 23:30 | CP.PCM.PN ---
Subjective - Date & Time of Evaluation Date of Evaluation: 11/29/18 Time of Evaluation: 08:20 - Subjective Subjective: Seen and examined at the bed side. Improving. Objective - Vital Signs/Intake and Output Vital Signs (last 24 hours): Temp Pulse Resp BP Pulse Ox 97.6 F 88 20 146/88 98 11/29/18 09:04 11/29/18 21:08 11/29/18 09:04 11/29/18 21:08 11/29/18 09:04 - Medications Medications: Current Medications Amlodipine Besylate (Norvasc) 10 mg PO DAILY [facility] Last Admin: 11/29/18 08:13 Dose: 10 mg Aspirin (Ecotrin) 81 mg PO DAILY [facility] Last Admin: 11/29/18 08:12 Dose: 81 mg Atorvastatin Calcium (Lipitor) 80 mg PO HS [facility] Last Admin: 11/29/18 21:09 Dose: 80 mg Clonidine HCl (Catapres) 0.1 mg PO Q6H PRN PRN Reason: SBP > 150 Gabapentin (Neurontin) 100 mg PO TID PRN PRN Reason: Anxiety Lactulose (Enulose) 20 gm PO BID PRN PRN Reason: Constipation Last Admin: 11/26/18 20:11 Dose: 20 gm Losartan Potassium (Cozaar) 100 mg PO HS [facility] Last Admin: 11/29/18 21:08 Dose: 100 mg Metoclopramide HCl (Reglan) 5 mg PO Q6 PRN PRN Reason: Nausea/Vomiting Last Admin: 11/29/18 12:38 Dose: 5 mg Pantoprazole Sodium (Protonix Ec Tab) 20 mg PO 0600,1600 [facility] Last Admin: 11/29/18 16:59 Dose: 20 mg Potassium Chloride (K-Dur 20 Meq Er Tab) 40 meq PO BRK [facility] Last Admin: 11/29/18 08:12 Dose: 40 meq Tramadol HCl (Ultram) 50 mg PO TID PRN PRN Reason: Pain 4-10 Last Admin: 11/29/18 20:30 Dose: 50 mg Trazodone HCl (Desyrel) 100 mg PO HS PRN PRN Reason: Insomnia Last Admin: 11/29/18 21:09 Dose: 100 mg - Labs Labs: 11/25/18 06:29 11/25/18 06:29 Assessment and Plan (1) Falls frequently Status: Acute (2) Opioid abuse Status: Acute (3) Syncope Status: Acute - Assessment and Plan (Free Text) Plan: Continue Current Care
[2018-11-30] MEDS: Pantoprazole 20 mg EC Tab PO SCH ×2 (06:33→16:21)
[2018-11-30] MEDS: Potassium Chloride 20 mEq ER Tab PO SCH (08:35)
--- NOTE | 2018-11-30 08:48 | CT ---
Date of service: 11/29/2018 PROCEDURE: CT HEAD WITHOUT CONTRAST. HISTORY: seizures and history of stroke COMPARISON: None available. TECHNIQUE: Axial computed tomography images were obtained through the head/brain without intravenous contrast. Radiation dose: Total exam DLP = 824.51 mGy-cm. This CT exam was performed using one or more of the following dose reduction techniques: Automated exposure control, adjustment of the mA and/or kV according to patient size, and/or use of iterative reconstruction technique. FINDINGS: HEMORRHAGE: No intracranial hemorrhage. BRAIN: No mass effect or edema. Mild age-appropriate diffuse atrophy. Old bilateral basal ganglia lacunar infarct. Mild to moderate patchy periventricular white matter lucency consistent with microvascular white matter ischemic change. No evidence of acute infarct. VENTRICLES: Unremarkable. No hydrocephalus. CALVARIUM: Unremarkable. PARANASAL SINUSES: Unremarkable as visualized. No significant inflammatory changes. MASTOID AIR CELLS: Unremarkable as visualized. No inflammatory changes. OTHER FINDINGS: Old depressed right lamina papyracea fracture. IMPRESSION: Mild age-appropriate atrophy and chronic white matter ischemic change. No evidence of acute infarct. Old bilateral basal ganglia lacunar infarcts. Old depressed right lamina papyracea fracture. The preliminary findings for this examination were reported by [facility] at 6:54 p.m. on 11/29/2018. There is concurrence of this report with the preliminary findings.
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
--- NOTE | 2018-11-30 13:04 | PCM.EEG ---
Electroencephalogram Report - Electroencephalogram Report Procedure Date: 11/28/18 Medication: ASA, lipitor, Trazodone Interpretation: . Technical Information: This was a 16 -channel EEG, 1-channel EKG routine EEG performed using an [employer] machine. Electrodes were applied using the 10/20 international placement system. Start; 22;45 End; 23;35 Total 40 min Clinical Information: seizures During resting wakefulness there was a symmetric posterior dominant rhythm at 8.5-9.5 Hz, 30-50 uV, which was reactive to eye opening and closing. Drowsiness (23;11 was associated with fragmentation of the posterior dominant rhythm and with slow roving eye movements. Light sleep was not recorded Hyperventilation was not performed. Photic stimulation was performed and there were no changes on the record. Focal abnormality; none Impression: This is a normal awake and drowsy electroencephalogram.
--- NOTE | 2018-11-30 16:45 | CP.PCM.PN ---
Subjective - Date & Time of Evaluation Date of Evaluation: 11/29/18 Time of Evaluation: 15:00 - Subjective Subjective: no acute complaints at present Objective - Vital Signs/Intake and Output Vital Signs (last 24 hours): Temp Pulse Resp BP Pulse Ox 98.2 F 87 18 149/79 100 11/30/18 10:00 11/30/18 13:08 11/30/18 10:00 11/30/18 10:00 11/30/18 13:08 - Medications Medications: Current Medications Amlodipine Besylate (Norvasc) 10 mg PO DAILY [facility] Last Admin: 11/30/18 08:36 Dose: 10 mg Aspirin (Ecotrin) 81 mg PO DAILY [facility] Last Admin: 11/30/18 08:35 Dose: 81 mg Atorvastatin Calcium (Lipitor) 80 mg PO HS [facility] Last Admin: 11/29/18 21:09 Dose: 80 mg Clonidine HCl (Catapres) 0.1 mg PO Q6H PRN PRN Reason: SBP > 150 Gabapentin (Neurontin) 100 mg PO TID PRN PRN Reason: Anxiety Last Admin: 11/30/18 08:35 Dose: 100 mg Lactulose (Enulose) 20 gm PO BID PRN PRN Reason: Constipation Last Admin: 11/26/18 20:11 Dose: 20 gm Losartan Potassium (Cozaar) 100 mg PO HS [facility] Last Admin: 11/29/18 21:08 Dose: 100 mg Metoclopramide HCl (Reglan) 5 mg PO Q6 PRN PRN Reason: Nausea/Vomiting Last Admin: 11/29/18 12:38 Dose: 5 mg Pantoprazole Sodium (Protonix Ec Tab) 20 mg PO 0600,1600 [facility] Last Admin: 11/30/18 16:21 Dose: 20 mg Potassium Chloride (K-Dur 20 Meq Er Tab) 40 meq PO BRK [facility] Last Admin: 11/30/18 08:35 Dose: 40 meq Tramadol HCl (Ultram) 50 mg PO TID PRN PRN Reason: Pain 4-10 Last Admin: 11/29/18 20:30 Dose: 50 mg Trazodone HCl (Desyrel) 100 mg PO HS PRN PRN Reason: Insomnia Last Admin: 11/29/18 21:09 Dose: 100 mg - Labs Labs: 11/25/18 06:29 11/25/18 06:29 - Constitutional Appears: Well - Head Exam Head Exam: ATRAUMATIC, NORMAL INSPECTION, NORMOCEPHALIC - Eye Exam Eye Exam: EOMI, Normal appearance, PERRL Pupil Exam: NORMAL ACCOMODATION, PERRL - ENT Exam ENT Exam: Mucous Membranes Moist, Normal Exam - Neck Exam Neck Exam: Full ROM, Normal Inspection - Respiratory Exam Respiratory Exam: Clear to Ausculation Bilateral, NORMAL BREATHING PATTERN - Cardiovascular Exam Cardiovascular Exam: REGULAR RHYTHM - GI/Abdominal Exam GI & Abdominal Exam: Soft, Normal Bowel Sounds - Rectal Exam Rectal Exam: NORMAL INSPECTION - Exam External exam: NORMAL EXTERNAL EXAM - Extremities Exam Extremities Exam: Normal Capillary Refill, Normal Inspection - Back Exam Back Exam: NORMAL INSPECTION - Neurological Exam Neurological Exam: Alert Neuro motor strength exam: Left Upper Extremity: 3, Right Upper Extremity: 3, Left Lower Extremity: 3, Right Lower Extremity: 3 - Psychiatric Exam Psychiatric exam: Normal Affect, Normal Mood - Skin Skin Exam: Normal Color Assessment and Plan (1) Syncope Status: Acute (2) CVA (cerebral vascular accident) Assessment & Plan: plan for physical , occupational, rec therapy , range of motion, strengthening, transfers and gait training Status: Acute
[2018-12-01] MEDS: Pantoprazole 20 mg EC Tab PO SCH ×2 (05:49→16:27)
[2018-12-01] MEDS: Potassium Chloride 20 mEq ER Tab PO SCH (08:39)
[2018-12-02] MEDS: Pantoprazole 20 mg EC Tab PO SCH ×2 (05:32→16:00)
[2018-12-02] MEDS: Multivitamin With Minerals Tab PO SCH (08:14)
[2018-12-02] MEDS: Potassium Chloride 20 mEq ER Tab PO SCH (08:14)
--- NOTE | 2018-12-02 12:15 | PCM.PSYTMC ---
Acute Rehab Team Conference - - Vital Signs: Vital Signs (Last 8 Hours): Vital Signs 12/02/18 12/02/18 12/02/18 07:27 08:12 09:00 Temperature 98.1 F 98.1 F Pulse Rate 80 80 80 Respiratory 20 20 Rate Blood Pressure 141/86 141/86 141/86 O2 Sat by Pulse 99 Oximetry Pain: 0 - Precautions: Precautions: Fall Prevention - Medications/Other Issues: Comment: complained of being weak started on multivitamins - Consults: Comment: Dr Teague,Dr Gibson,Dr Marshall,DR Khanna - Toileting: Toileting: Supervision - Bladder Management: Bladder Pattern: Normal Voiding Method: Toilet Bladder Management: Supervision - Transfers: Transfers: Contact Guard - ADL's: ADL's: Contact Guard - Pain Management: Other Intervention:: on tramadol for pain - Patient/Family Teaching: Other Intervention:: safety fall seizures medication reachings post cva - Goals/Time Frame: Comment: as per multidiciplinary plan of care [facility] 12/09/2018 - Provider: Registered Nurse:: Mahsa Almanza Physical Therapy - Bed Mobility Bed Mobility: Modified Independent - Transfers Wheelchair to Mat: Modified Independent, Supervision Sit to Stand: Modified Independent, Supervision Comment: supervision progressing to mod I - Ambulation Level of Assistance: Supervision, Verbal Cues Distance (ft.): 400 Assistive Devices: N/A Orthoses: n/a Comment: -trialed SPC as patient inquired regarding device; patient has difficulty using SPC with LUE but benefits from SPC use in LUE due to history of R ankle injury; upon further discussion with patient she agrees with this television script writer that she does not need the SPC for safety with mobility but can use it prn as she wants for comfort. -400 feet, level surface, supervision, no device. -VCs for improved reciprocal arm swing. -continued cues to prevent collisions with objects on left side and to improve spatial negotiation of obstacles on left side - Stair Negotiation Stairs: Level of Assistance: Modified Independent, Supervision Number of Stairs: 22 Handrails: Right Stairs: Assistive Devices: Left Handrail, Right Handrail Comment: 22 6inch steps with R rail and reciprocal pattern on ascent; L rail and combination of reciprocal and step to pattern on descent. -supervision with standing rest breaks as needed. -stable gait pattern - Standing Balance Static Stand: Modified [place] with assistive device Comment: no device for balance - Pain Pain (assessed during therapy session): 0 Alleviating Techniques: Distraction, Relaxation Techniques Comment: -patient denies pain during therapy sessions. -patient does report some body aches at night which feel like anxiety; patient reports at times these keep her awake at night; discussed relaxation and distraction techniques including use of music to relax at night - Insight/Carryover Insight/Carryover: Good - Patient/Family Education Comment: safety, therapy schedule, therapy goals, importance of use of call stanley, POC, distraction techniques, relaxation, stroke recovery - Assessment/Plan Assessment: Ms. Vasquez continues to make good progress in therapy. Patient is progressing towards independence with all mobility but continues to require cueing for safety due to intermittent losses of balance and impaired tolerance to activities. SPC has been trialed but patient and this television script writer agree that ext ernal device is not necessary for safety with mobility. Patient reports some anxiety at night and patient encouraged to utilize relaxing music as a distraction technique to improve feelings and improve ability to sleep. PT recommends continued skilled therapy services to continue addressing skilled needs s/p C A. PT recommends home discharge with outpatient PT services at completion of full length of stay in acute rehab. Patient reports senior living plan is for her to go to live with sister in [facility] around of this year; patient reports family is all in agreement with this senior living plan. - Goals Timeframe: 7 days Goals: In 7 days, Ms. Vasquez will perform the following activities: (1) independence with all bed/mat mobility including rolling and supine to/from sit. (2) transfers including sit to/from stand and stand pivot with independence. (3) car transfers with set up assistance. (4) gait on indoor surfaces x 1000 feet with independence. (5) gait on outdoor surfaces x 500 feet with independence but presence of industrial hygienist for safety. (6) negotiate steps x 2 flights with single rail with modified independence. (7) improve DGI score to at least 22/24 indicating clinically significant improvement in balance and reduction in fall risk - Provider Physical Therapist:: Roseline Nieves License Number:: [id number] Occupational Therapy - Arousal/Attention/Orientation Level of Consciousness: Awake, Alert Patient Orientation: Person, Place, Time, Appropriate to Age, Appropriate to Situation Assessment Comment: anxious at times - ADL/IADL Self Feeding: Independent, Set-up Help Grooming: Supervision, Verbal Cues, Set-up Help Bathing-Upper Ext: Supervision, Verbal Cues, Set-up Help Bathing-Lower Ext: Verbal Cues, Set-up Help, Contact Guard, Minimal Assistance Dressing-Upper Ext: Independent, Set-up Help Dressing-Lower Ext: Supervision, Verbal Cues, Set-up Help, Contact Guard Homemaking: Supervision, Verbal Cues, Set-up Help, Contact Guard Comment: Toileting with CS - Sitting Balance Static Sitting: Independent without upper extremity support Dynamic Sitting: Reaches across midline, Reaches out of base of support, Reaches within base of support, Requires supervision Comment: seated unsupported - Transfers Wheelchair to Bed Transfers: Supervision, Verbal Cues, Set-up Help Toilet Transfers: Supervision, Verbal Cues, Set-up Help Comment: shwower transfers: CG/CS to transfer bench - Wheelchair Management Level of Assistance: Modified Independent Distance (ft.): 75 - Upper Extremity Status Right Upper Extremity Comment: AROM is WFLS: 4/5 Left Upper Extremity Comment: AROM is WFLS: 4/5 - Pain Pain (assessed during therapy session): 0 - Insight/Carryover Insight/Carryover: Fair - Patient/Family Education Comment: -ongoing for adls, transfer/mobility training, homemaking skills, fall prevention. -educated on rehab/OT goals, plan of care and safety, use of call stanley. -w/c and bed positioning for skin intergrity. -provided with emotional support as needed to complete tasks of the day. -fall prevention techniques/precautions, self release seatbelt. -educated on uses/applications of commode and transfer tub bench; pt made aware that transfer bench not covered by insurance and to consider ordering from [employer]. -educated on role of UNIVERSAL GRINDER TOOL for Iadls--laundry, bathing prn; pt resitant to having UNIVERSAL GRINDER TOOL - Assessment/Plan Assessment: Pt is a 63 year old R handed female with dx: acute CVA, syncope. *Precautions: cardiac, syncope, hx of multiple falls, self relase seatbelt alrm. Pt currently at CS/Supervision overall for transfers/mobility, Supervision for bed mobility, CS/CG for lower body self care, CS for toileting without assistive device, CS /Supervision for grooming standing at sink. Pt limited mostly by emotional state. Pt will continue to benefit from psychology/psychiatry consults for depressed mood so can progress towards established rehab goals. Pt will continue skilled OT to maxmize/ I/safety with daily living tasks for safe transition home with services and proper DMEs. Goal: Intemittent S for daily living tasks, self care, transfers and mobility. - Goals Timeframe: 8 days Comment: -FEEDING: Mod I. -GROOMING: Mod I standing. -UPPER BODY DRESSING: Mod I. -LOWER BODY DRESSING: Mod I. -TOILETING: Mod I. -BUE STRENGTH increase to 4+/5. -BATHING: I/setup seated. -HOMEMAKING SKILLS: DS/Mod I. -W/C MANAGEMENT/PROPULSION 150 FEET WITH Mod I, manage B brakes with Mod I. - GATHER/TRANSPORT ITEMS: Mod I as needed to complete daily living tasks. -TRANSFERS:<->bed, commode, chair and other surfaces with Mod I - Provider Occupational Therapist:: Ruby Savage License Number: [id number] Speech Therapy - Consult Information Patient on Program: Yes Medical Diagnosis: CVA Treatment Diagnosis: Cognitive Communication Impairment - Assessment Expressive Language Impairment: Mild Receptive Language Impairment: Mild Problem Solving Impairment: Moderate Memory Impairment: Moderate Speech/Articulation Impairment: Mild Dysphagia/Swallowing Impairment: Mild - Plan Assessment: Pt continues to present with a moderate cognitive communication impairment characterized by deficts in the areas of memory, attention, problem solving, and safety Plan: Continue Speech/Language Therapy Frequency: 3-5 times per week Duration: 1 week - Provider Therapist: Ela Mcneill License Number: [id number] Recreational Therapy - Participation Participation: Participates in Individual and/or Group Sessions - Attendance Attendance: 3-5 times per week - Activities Leisure Activities: Cards and Games - Socialization Level of Socialization: Initiates/interacts freely with care givers and peer - Diversional Time Diversional Time: watching television, coloring, using iPad for diversion - Assessment Assessment/Plan: Pt is agreeable to participate in recreation therapy sessions offered throughout stay on unit. Pt has participated in higher level cognitive tasks as well as tasks to improve processing and direction following. Pt requires min verbal cues at times for [id number] direction following 2' impaired level of processing. Pt has demonstrated improved recalling facts on demand and arousal level. Pt has coloring page and supplies at bedside to com plete during her free time to improve diversion and activity tolerance level. Pt will continue to benefit from participating in recreation therapy sessions throughout stay on unit. Problems Currently Limiting Participation: decrease leisure awareness level, decrease activity tolerance level, decrease task processing Goals and Time Frame: Pt will tolerate participating in 30 minutes of recreation therapy session mod I by date of discharge. Pt will identify three positive leisure alternatives to decrease substance use by date of discharge. - Provider Therapist: Ann-Marie Meza Nutrition - Current Diet Current Diet/Supplement/Feedings: Heart Healthy diet - Appetite Percent Meal Consumed: 75-100% - Assessment/Goals/Time Frame Assessments/Goals/Time Frame: Pt at low nutritional risk. no goals. Follow-up due on 12/04/2018 - Provider Provider: Debra Coe Case Management - Psychosocial Assessment Support Systems: Stacey Vasquez (melany) - [phone] Psychological Interventions/Needs: Patient is AAOx3 and able to verbalize needs. Discharge Concerns: Patient has a history of substance abuse and is still having some periods of unsteadiness and requiring supervision. Patient/Family Meeting: CM met with patient and rehab team. Intervention/Goal/Outcome: 1. Goal: Modified Independent 2. Plan: home with VNS 3. Discuss DME needs with team and order accordingly 4. schedule f/u appts 5. schedule caregiver training with daughter 6. continued emotional support - Discharge Plan Discharge Plan: Home with services Home Services: [facility] - Provider Provider: Stefanie Dolan License Number: [id number] Rehabilitation Plan - Treatment Plan Treatment Plan: Physical Therapy, Occupational Therapy, Speech, Dietary, Patient/Family Education - Recommendation Recommendation: Physical Therapy, Occupational Therapy, Speech, Dietary, Patient/Family Education - Discharge Plan Discharge to: Home (December 10)
--- NOTE | 2018-12-02 14:02 | CP.PCM.PN ---
Subjective - Date & Time of Evaluation Date of Evaluation: 12/02/18 Time of Evaluation: 12:00 - Subjective Subjective: no acute complaints at present, just tired Objective - Vital Signs/Intake and Output Vital Signs (last 24 hours): Temp Pulse Resp BP Pulse Ox 98.1 F 80 20 141/86 99 12/02/18 09:00 12/02/18 09:00 12/02/18 09:00 12/02/18 09:00 12/02/18 07:27 - Medications Medications: Current Medications Amlodipine Besylate (Norvasc) 10 mg PO DAILY [facility] Last Admin: 12/02/18 08:12 Dose: 10 mg Aspirin (Ecotrin) 81 mg PO DAILY [facility] Last Admin: 12/02/18 08:13 Dose: 81 mg Atorvastatin Calcium (Lipitor) 80 mg PO HS [facility] Last Admin: 12/01/18 21:13 Dose: 80 mg Clonidine HCl (Catapres) 0.1 mg PO Q6H PRN PRN Reason: SBP > 150 Gabapentin (Neurontin) 100 mg PO TID PRN PRN Reason: Anxiety Last Admin: 11/30/18 08:35 Dose: 100 mg Lactulose (Enulose) 20 gm PO BID PRN PRN Reason: Constipation Last Admin: 11/26/18 20:11 Dose: 20 gm Losartan Potassium (Cozaar) 100 mg PO HS [facility] Last Admin: 12/01/18 21:13 Dose: 100 mg Metoclopramide HCl (Reglan) 5 mg PO Q6 PRN PRN Reason: Nausea/Vomiting Last Admin: 11/29/18 12:38 Dose: 5 mg Multivitamins/Minerals (Therapeutic-M Tab) 1 tab PO DAILY [facility] Last Admin: 12/02/18 08:14 Dose: 1 tab Pantoprazole Sodium (Protonix Ec Tab) 20 mg PO 0600,1600 [facility] Last Admin: 12/02/18 05:32 Dose: 20 mg Potassium Chloride (K-Dur 20 Meq Er Tab) 40 meq PO BRK [facility] Last Admin: 12/02/18 08:14 Dose: 40 meq Tramadol HCl (Ultram) 50 mg PO TID PRN PRN Reason: Pain 4-10 Last Admin: 12/01/18 21:46 Dose: 50 mg Trazodone HCl (Desyrel) 100 mg PO HS PRN PRN Reason: Insomnia Last Admin: 12/01/18 21:13 Dose: 100 mg - Labs Labs: 11/25/18 06:29 11/25/18 06:29 - Constitutional Appears: Well - Head Exam Head Exam: ATRAUMATIC, NORMAL INSPECTION, NORMOCEPHALIC - Eye Exam Eye Exam: EOMI, Normal appearance, PERRL Pupil Exam: NORMAL ACCOMODATION, PERRL - ENT Exam ENT Exam: Mucous Membranes Moist, Normal Exam - Neck Exam Neck Exam: Full ROM, Normal Inspection - Respiratory Exam Respiratory Exam: Clear to Ausculation Bilateral, NORMAL BREATHING PATTERN - Cardiovascular Exam Cardiovascular Exam: REGULAR RHYTHM - GI/Abdominal Exam GI & Abdominal Exam: Soft, Normal Bowel Sounds - Rectal Exam Rectal Exam: NORMAL INSPECTION - Exam External exam: NORMAL EXTERNAL EXAM - Extremities Exam Extremities Exam: Full ROM, Normal Capillary Refill, Normal Inspection - Back Exam Back Exam: NORMAL INSPECTION - Neurological Exam Neurological Exam: Alert Neuro motor strength exam: Left Upper Extremity: 3, Right Upper Extremity: 3, Left Lower Extremity: 3, Right Lower Extremity: 3 - Psychiatric Exam Psychiatric exam: Normal Affect, Normal Mood - Skin Skin Exam: Dry, Intact Assessment and Plan (1) Syncope Status: Acute (2) CVA (cerebral vascular accident) Assessment & Plan: plan for physical, occupational rec speech therapy Dc for december 10 Status: Acute
--- NOTE | 2018-12-02 14:26 | CP.PCM.PN ---
Subjective - Date & Time of Evaluation Date of Evaluation: 12/01/18 Time of Evaluation: 09:00 - Subjective Subjective: no acute neck or back pain Objective - Vital Signs/Intake and Output Vital Signs (last 24 hours): Temp Pulse Resp BP Pulse Ox 98.1 F 80 20 141/86 99 12/02/18 09:00 12/02/18 09:00 12/02/18 09:00 12/02/18 09:00 12/02/18 07:27 - Medications Medications: Current Medications Amlodipine Besylate (Norvasc) 10 mg PO DAILY [facility] Last Admin: 12/02/18 08:12 Dose: 10 mg Aspirin (Ecotrin) 81 mg PO DAILY [facility] Last Admin: 12/02/18 08:13 Dose: 81 mg Atorvastatin Calcium (Lipitor) 80 mg PO HS [facility] Last Admin: 12/01/18 21:13 Dose: 80 mg Clonidine HCl (Catapres) 0.1 mg PO Q6H PRN PRN Reason: SBP > 150 Gabapentin (Neurontin) 100 mg PO TID PRN PRN Reason: Anxiety Last Admin: 11/30/18 08:35 Dose: 100 mg Lactulose (Enulose) 20 gm PO BID PRN PRN Reason: Constipation Last Admin: 11/26/18 20:11 Dose: 20 gm Losartan Potassium (Cozaar) 100 mg PO HS [facility] Last Admin: 12/01/18 21:13 Dose: 100 mg Metoclopramide HCl (Reglan) 5 mg PO Q6 PRN PRN Reason: Nausea/Vomiting Last Admin: 11/29/18 12:38 Dose: 5 mg Multivitamins/Minerals (Therapeutic-M Tab) 1 tab PO DAILY [facility] Last Admin: 12/02/18 08:14 Dose: 1 tab Pantoprazole Sodium (Protonix Ec Tab) 20 mg PO 0600,1600 [facility] Last Admin: 12/02/18 05:32 Dose: 20 mg Potassium Chloride (K-Dur 20 Meq Er Tab) 40 meq PO BRK [facility] Last Admin: 12/02/18 08:14 Dose: 40 meq Tramadol HCl (Ultram) 50 mg PO TID PRN PRN Reason: Pain 4-10 Last Admin: 12/01/18 21:46 Dose: 50 mg Trazodone HCl (Desyrel) 100 mg PO HS PRN PRN Reason: Insomnia Last Admin: 12/01/18 21:13 Dose: 100 mg - Labs Labs: 11/25/18 06:29 11/25/18 06:29 - Constitutional Appears: Well - Head Exam Head Exam: ATRAUMATIC, NORMAL INSPECTION, NORMOCEPHALIC - Eye Exam Eye Exam: EOMI, Normal appearance, PERRL Pupil Exam: NORMAL ACCOMODATION - ENT Exam ENT Exam: Mucous Membranes Moist, Normal Exam - Neck Exam Neck Exam: Full ROM, Normal Inspection - Respiratory Exam Respiratory Exam: Clear to Ausculation Bilateral, NORMAL BREATHING PATTERN - Cardiovascular Exam Cardiovascular Exam: REGULAR RHYTHM - GI/Abdominal Exam GI & Abdominal Exam: Soft, Normal Bowel Sounds - Rectal Exam Rectal Exam: NORMAL INSPECTION - Exam External exam: NORMAL EXTERNAL EXAM - Extremities Exam Extremities Exam: Full ROM, Normal Capillary Refill - Back Exam Back Exam: NORMAL INSPECTION - Neurological Exam Neurological Exam: Alert, Awake Neuro motor strength exam: Left Upper Extremity: 3, Right Upper Extremity: 3, Left Lower Extremity: 3, Right Lower Extremity: 3 - Psychiatric Exam Psychiatric exam: Normal Affect, Normal Mood - Skin Skin Exam: Dry, Normal Color Assessment and Plan (1) Syncope Status: Acute (2) CVA (cerebral vascular accident) Assessment & Plan: plan for physical, occupational rec and speech therapy Status: Acute
[2018-12-03] MEDS: Pantoprazole 20 mg EC Tab PO SCH ×2 (06:51→15:45)
[2018-12-03] MEDS: Multivitamin With Minerals Tab PO SCH (09:20)
[2018-12-03] MEDS: Potassium Chloride 20 mEq ER Tab PO SCH (09:20)
[2018-12-04] MEDS: Pantoprazole 20 mg EC Tab PO SCH ×2 (06:32→16:50)
[2018-12-04] MEDS: Multivitamin With Minerals Tab PO SCH (08:46)
[2018-12-04] MEDS: Potassium Chloride 20 mEq ER Tab PO SCH (08:47)
--- NOTE | 2018-12-04 14:11 | CP.PCM.PN ---
Subjective - Date & Time of Evaluation Date of Evaluation: 12/04/18 Time of Evaluation: 11:00 - Subjective Subjective: no acute complaints at present, Objective - Vital Signs/Intake and Output Vital Signs (last 24 hours): Temp Pulse Resp BP Pulse Ox 98.8 F 83 18 137/77 100 12/04/18 07:48 12/04/18 08:48 12/04/18 07:48 12/04/18 08:48 12/04/18 07:48 - Medications Medications: Current Medications Amlodipine Besylate (Norvasc) 10 mg PO DAILY [facility] Last Admin: 12/04/18 08:48 Dose: 10 mg Aspirin (Ecotrin) 81 mg PO DAILY [facility] Last Admin: 12/04/18 08:46 Dose: 81 mg Atorvastatin Calcium (Lipitor) 80 mg PO HS [facility] Last Admin: 12/03/18 21:35 Dose: 80 mg Clonidine HCl (Catapres) 0.1 mg PO Q6H PRN PRN Reason: SBP > 150 Gabapentin (Neurontin) 100 mg PO TID PRN PRN Reason: Anxiety Last Admin: 12/04/18 08:47 Dose: 100 mg Lactulose (Enulose) 20 gm PO BID PRN PRN Reason: Constipation Last Admin: 12/03/18 19:34 Dose: 20 gm Losartan Potassium (Cozaar) 100 mg PO HS [facility] Last Admin: 12/03/18 21:35 Dose: 100 mg Metoclopramide HCl (Reglan) 5 mg PO Q6 PRN PRN Reason: Nausea/Vomiting Last Admin: 11/29/18 12:38 Dose: 5 mg Multivitamins/Minerals (Therapeutic-M Tab) 1 tab PO DAILY [facility] Last Admin: 12/04/18 08:46 Dose: 1 tab Pantoprazole Sodium (Protonix Ec Tab) 20 mg PO 0600,1600 [facility] Last Admin: 12/04/18 06:32 Dose: 20 mg Potassium Chloride (K-Dur 20 Meq Er Tab) 40 meq PO BRK [facility] Last Admin: 12/04/18 08:47 Dose: 40 meq Tramadol HCl (Ultram) 50 mg PO TID PRN PRN Reason: Pain 4-10 Last Admin: 12/03/18 19:32 Dose: 50 mg Trazodone HCl (Desyrel) 100 mg PO HS PRN PRN Reason: Insomnia Last Admin: 12/03/18 22:50 Dose: 100 mg - Labs Labs: 11/25/18 06:29 11/25/18 06:29 - Constitutional Appears: Well - Head Exam Head Exam: ATRAUMATIC, NORMAL INSPECTION, NORMOCEPHALIC - Eye Exam Eye Exam: EOMI, Normal appearance, PERRL Pupil Exam: NORMAL ACCOMODATION - ENT Exam ENT Exam: Mucous Membranes Moist, Normal Exam - Neck Exam Neck Exam: Full ROM, Normal Inspection - Respiratory Exam Respiratory Exam: Clear to Ausculation Bilateral, NORMAL BREATHING PATTERN - Cardiovascular Exam Cardiovascular Exam: REGULAR RHYTHM - GI/Abdominal Exam GI & Abdominal Exam: Soft, Normal Bowel Sounds - Rectal Exam Rectal Exam: NORMAL INSPECTION - Exam External exam: NORMAL EXTERNAL EXAM - Extremities Exam Extremities Exam: Full ROM, Normal Capillary Refill, Normal Inspection - Back Exam Back Exam: NORMAL INSPECTION - Neurological Exam Neurological Exam: Alert, Awake Neuro motor strength exam: Left Upper Extremity: 3, Right Upper Extremity: 3, Left Lower Extremity: 3, Right Lower Extremity: 3 - Psychiatric Exam Psychiatric exam: Normal Affect, Normal Mood - Skin Skin Exam: Dry, Intact Assessment and Plan (1) Syncope Status: Acute (2) CVA (cerebral vascular accident) Assessment & Plan: plan to continue with therapy with physical, occupational, rec therapy and spe ech, now for Dc Status: Acute
[2018-12-05] MEDS: Pantoprazole 20 mg EC Tab PO SCH ×2 (06:22→16:27)
[2018-12-05] MEDS: Multivitamin With Minerals Tab PO SCH (08:12)
[2018-12-05] MEDS: Potassium Chloride 20 mEq ER Tab PO SCH (08:12)
[2018-12-06] MEDS: Pantoprazole 20 mg EC Tab PO SCH ×2 (07:46→16:30)
[2018-12-06] MEDS: Potassium Chloride 20 mEq ER Tab PO SCH (08:26)
[2018-12-06] MEDS: Multivitamin With Minerals Tab PO SCH (08:27)
--- NOTE | 2018-12-07 05:04 | CP.PCM.PN ---
Subjective - Date & Time of Evaluation Date of Evaluation: 12/01/18 Objective - Vital Signs/Intake and Output Vital Signs (last 24 hours): Temp Pulse Resp BP Pulse Ox 974 F H 90 20 126/79 100 12/06/18 20:00 12/06/18 21:40 12/06/18 20:00 12/06/18 21:40 12/06/18 20:00 - Medications Medications: Current Medications Amlodipine Besylate (Norvasc) 10 mg PO DAILY [facility] Last Admin: 12/06/18 08:27 Dose: 10 mg Aspirin (Ecotrin) 81 mg PO DAILY [facility] Last Admin: 12/06/18 08:27 Dose: 81 mg Atorvastatin Calcium (Lipitor) 80 mg PO HS [facility] Last Admin: 12/06/18 21:39 Dose: 80 mg Clonidine HCl (Catapres) 0.1 mg PO Q6H PRN PRN Reason: SBP > 150 Gabapentin (Neurontin) 100 mg PO TID PRN PRN Reason: Anxiety Last Admin: 12/05/18 08:12 Dose: 100 mg Lactulose (Enulose) 20 gm PO BID PRN PRN Reason: Constipation Last Admin: 12/03/18 19:34 Dose: 20 gm Losartan Potassium (Cozaar) 100 mg PO HS [facility] Last Admin: 12/06/18 21:40 Dose: 100 mg Metoclopramide HCl (Reglan) 5 mg PO Q6 PRN PRN Reason: Nausea/Vomiting Last Admin: 11/29/18 12:38 Dose: 5 mg Multivitamins/Minerals (Therapeutic-M Tab) 1 tab PO DAILY [facility] Last Admin: 12/06/18 08:27 Dose: 1 tab Pantoprazole Sodium (Protonix Ec Tab) 20 mg PO 0600,1600 [facility] Last Admin: 12/06/18 16:30 Dose: 20 mg Potassium Chloride (K-Dur 20 Meq Er Tab) 40 meq PO BRK [facility] Last Admin: 12/06/18 08:26 Dose: 40 meq Tramadol HCl (Ultram) 50 mg PO TID PRN PRN Reason: Pain 4-10 Last Admin: 12/06/18 21:43 Dose: 50 mg Trazodone HCl (Desyrel) 100 mg PO HS PRN PRN Reason: Insomnia Last Admin: 12/05/18 21:53 Dose: 100 mg - Labs Labs: 11/25/18 06:29 04/17/19 06:29 Assessment and Plan (1) CVA (cerebral vascular accident) Status: Acute (2) Falls frequently Status: Acute (3) Hypertension Status: Acute (4) Insomnia Status: Acute (5) Opioid abuse Status: Acute (6) Syncope Status: Acute
--- NOTE | 2018-12-07 05:04 | CP.PCM.PN ---
Subjective - Date & Time of Evaluation Date of Evaluation: 11/30/18 Objective - Vital Signs/Intake and Output Vital Signs (last 24 hours): Temp Pulse Resp BP Pulse Ox 974 F H 90 20 126/79 100 12/06/18 20:00 12/06/18 21:40 12/06/18 20:00 12/06/18 21:40 12/06/18 20:00 - Medications Medications: Current Medications Amlodipine Besylate (Norvasc) 10 mg PO DAILY [facility] Last Admin: 12/06/18 08:27 Dose: 10 mg Aspirin (Ecotrin) 81 mg PO DAILY [facility] Last Admin: 12/06/18 08:27 Dose: 81 mg Atorvastatin Calcium (Lipitor) 80 mg PO HS [facility] Last Admin: 12/06/18 21:39 Dose: 80 mg Clonidine HCl (Catapres) 0.1 mg PO Q6H PRN PRN Reason: SBP > 150 Gabapentin (Neurontin) 100 mg PO TID PRN PRN Reason: Anxiety Last Admin: 12/05/18 08:12 Dose: 100 mg Lactulose (Enulose) 20 gm PO BID PRN PRN Reason: Constipation Last Admin: 12/03/18 19:34 Dose: 20 gm Losartan Potassium (Cozaar) 100 mg PO HS [facility] Last Admin: 12/06/18 21:40 Dose: 100 mg Metoclopramide HCl (Reglan) 5 mg PO Q6 PRN PRN Reason: Nausea/Vomiting Last Admin: 11/29/18 12:38 Dose: 5 mg Multivitamins/Minerals (Therapeutic-M Tab) 1 tab PO DAILY [facility] Last Admin: 12/06/18 08:27 Dose: 1 tab Pantoprazole Sodium (Protonix Ec Tab) 20 mg PO 0600,1600 [facility] Last Admin: 12/06/18 16:30 Dose: 20 mg Potassium Chloride (K-Dur 20 Meq Er Tab) 40 meq PO BRK [facility] Last Admin: 12/06/18 08:26 Dose: 40 meq Tramadol HCl (Ultram) 50 mg PO TID PRN PRN Reason: Pain 4-10 Last Admin: 12/06/18 21:43 Dose: 50 mg Trazodone HCl (Desyrel) 100 mg PO HS PRN PRN Reason: Insomnia Last Admin: 12/05/18 21:53 Dose: 100 mg - Labs Labs: 11/25/18 06:29 04/17/19 06:29 Assessment and Plan (1) CVA (cerebral vascular accident) Status: Acute (2) Falls frequently Status: Acute (3) Hypertension Status: Acute (4) Insomnia Status: Acute (5) Opioid abuse Status: Acute (6) Syncope Status: Acute
--- NOTE | 2018-12-07 05:05 | CP.PCM.PN ---
Subjective - Date & Time of Evaluation Date of Evaluation: 12/02/18 Objective - Vital Signs/Intake and Output Vital Signs (last 24 hours): Temp Pulse Resp BP Pulse Ox 974 F H 90 20 126/79 100 12/06/18 20:00 12/06/18 21:40 12/06/18 20:00 12/06/18 21:40 12/06/18 20:00 - Medications Medications: Current Medications Amlodipine Besylate (Norvasc) 10 mg PO DAILY [facility] Last Admin: 12/06/18 08:27 Dose: 10 mg Aspirin (Ecotrin) 81 mg PO DAILY [facility] Last Admin: 12/06/18 08:27 Dose: 81 mg Atorvastatin Calcium (Lipitor) 80 mg PO HS [facility] Last Admin: 12/06/18 21:39 Dose: 80 mg Clonidine HCl (Catapres) 0.1 mg PO Q6H PRN PRN Reason: SBP > 150 Gabapentin (Neurontin) 100 mg PO TID PRN PRN Reason: Anxiety Last Admin: 12/05/18 08:12 Dose: 100 mg Lactulose (Enulose) 20 gm PO BID PRN PRN Reason: Constipation Last Admin: 12/03/18 19:34 Dose: 20 gm Losartan Potassium (Cozaar) 100 mg PO HS [facility] Last Admin: 12/06/18 21:40 Dose: 100 mg Metoclopramide HCl (Reglan) 5 mg PO Q6 PRN PRN Reason: Nausea/Vomiting Last Admin: 11/29/18 12:38 Dose: 5 mg Multivitamins/Minerals (Therapeutic-M Tab) 1 tab PO DAILY [facility] Last Admin: 12/06/18 08:27 Dose: 1 tab Pantoprazole Sodium (Protonix Ec Tab) 20 mg PO 0600,1600 [facility] Last Admin: 12/06/18 16:30 Dose: 20 mg Potassium Chloride (K-Dur 20 Meq Er Tab) 40 meq PO BRK [facility] Last Admin: 12/06/18 08:26 Dose: 40 meq Tramadol HCl (Ultram) 50 mg PO TID PRN PRN Reason: Pain 4-10 Last Admin: 12/06/18 21:43 Dose: 50 mg Trazodone HCl (Desyrel) 100 mg PO HS PRN PRN Reason: Insomnia Last Admin: 12/05/18 21:53 Dose: 100 mg - Labs Labs: 11/25/18 06:29 04/17/19 06:29 Assessment and Plan (1) CVA (cerebral vascular accident) Status: Acute (2) Falls frequently Status: Acute (3) Hypertension Status: Acute (4) Insomnia Status: Acute (5) Opioid abuse Status: Acute (6) Syncope Status: Acute
--- NOTE | 2018-12-07 05:05 | CP.PCM.PN ---
Subjective - Date & Time of Evaluation Date of Evaluation: 12/03/18 Objective - Vital Signs/Intake and Output Vital Signs (last 24 hours): Temp Pulse Resp BP Pulse Ox 974 F H 90 20 126/79 100 12/06/18 20:00 12/06/18 21:40 12/06/18 20:00 12/06/18 21:40 12/06/18 20:00 - Medications Medications: Current Medications Amlodipine Besylate (Norvasc) [address] [facility] Last Admin: 12/06/18 08:27 Dose: 10 mg Aspirin (Ecotrin) [address] [facility] Last Admin: 12/06/18 08:27 Dose: 81 mg Atorvastatin Calcium (Lipitor) [address] [facility] Last Admin: 12/06/18 21:39 Dose: 80 mg Clonidine HCl (Catapres) 0.1 mg PO Q6H PRN PRN Reason: SBP > 150 Gabapentin (Neurontin) 100 mg PO TID PRN PRN Reason: Anxiety Last Admin: 12/05/18 08:12 Dose: 100 mg Lactulose (Enulose) 20 gm PO BID PRN PRN Reason: Constipation Last Admin: 12/03/18 19:34 Dose: 20 gm Losartan Potassium (Cozaar) [address] [facility] Last Admin: 12/06/18 21:40 Dose: 100 mg Metoclopramide HCl (Reglan) 5 mg PO Q6 PRN PRN Reason: Nausea/Vomiting Last Admin: 11/29/18 12:38 Dose: 5 mg Multivitamins/Minerals (Therapeutic-M Tab) [address] [facility] Last Admin: 12/06/18 08:27 Dose: 1 tab Pantoprazole Sodium (Protonix Ec Tab) 20 mg PO 0600,1600 [facility] Last Admin: 12/06/18 16:30 Dose: 20 mg Potassium Chloride (K-Dur 20 Meq Er Tab) [address] [facility] Last Admin: 12/06/18 08:26 Dose: 40 meq Tramadol HCl (Ultram) 50 mg PO TID PRN PRN Reason: Pain 4-10 Last Admin: 12/06/18 21:43 Dose: 50 mg Trazodone HCl (Desyrel) 100 mg PO HS PRN PRN Reason: Insomnia Last Admin: 12/05/18 21:53 Dose: 100 mg - Labs Labs: 11/25/18 06:29 04/17/19 06:29 Assessment and Plan (1) CVA (cerebral vascular accident) Status: Acute (2) Falls frequently Status: Acute (3) Hypertension Status: Acute (4) Insomnia Status: Acute (5) Opioid abuse Status: Acute (6) Syncope Status: Acute
--- NOTE | 2018-12-07 05:06 | CP.PCM.PN ---
Subjective - Date & Time of Evaluation Date of Evaluation: 12/05/18 Objective - Vital Signs/Intake and Output Vital Signs (last 24 hours): Temp Pulse Resp BP Pulse Ox 974 F H 90 20 126/79 100 12/06/18 20:00 12/06/18 21:40 12/06/18 20:00 12/06/18 21:40 12/06/18 20:00 - Medications Medications: Current Medications Amlodipine Besylate (Norvasc) 10 mg PO DAILY [facility] Last Admin: 12/06/18 08:27 Dose: 10 mg Aspirin (Ecotrin) 81 mg PO DAILY [facility] Last Admin: 12/06/18 08:27 Dose: 81 mg Atorvastatin Calcium (Lipitor) 80 mg PO HS [facility] Last Admin: 12/06/18 21:39 Dose: 80 mg Clonidine HCl (Catapres) 0.1 mg PO Q6H PRN PRN Reason: SBP > 150 Gabapentin (Neurontin) 100 mg PO TID PRN PRN Reason: Anxiety Last Admin: 12/05/18 08:12 Dose: 100 mg Lactulose (Enulose) 20 gm PO BID PRN PRN Reason: Constipation Last Admin: 12/03/18 19:34 Dose: 20 gm Losartan Potassium (Cozaar) 100 mg PO HS [facility] Last Admin: 12/06/18 21:40 Dose: 100 mg Metoclopramide HCl (Reglan) 5 mg PO Q6 PRN PRN Reason: Nausea/Vomiting Last Admin: 11/29/18 12:38 Dose: 5 mg Multivitamins/Minerals (Therapeutic-M Tab) 1 tab PO DAILY [facility] Last Admin: 12/06/18 08:27 Dose: 1 tab Pantoprazole Sodium (Protonix Ec Tab) 20 mg PO 0600,1600 [facility] Last Admin: 12/06/18 16:30 Dose: 20 mg Potassium Chloride (K-Dur 20 Meq Er Tab) 40 meq PO BRK [facility] Last Admin: 12/06/18 08:26 Dose: 40 meq Tramadol HCl (Ultram) 50 mg PO TID PRN PRN Reason: Pain 4-10 Last Admin: 12/06/18 21:43 Dose: 50 mg Trazodone HCl (Desyrel) 100 mg PO HS PRN PRN Reason: Insomnia Last Admin: 12/05/18 21:53 Dose: 100 mg - Labs Labs: 11/25/18 06:29 04/17/19 06:29 Assessment and Plan (1) CVA (cerebral vascular accident) Status: Acute (2) Falls frequently Status: Acute (3) Hypertension Status: Acute (4) Insomnia Status: Acute (5) Opioid abuse Status: Acute (6) Syncope Status: Acute
--- NOTE | 2018-12-07 05:06 | CP.PCM.PN ---
Subjective - Date & Time of Evaluation Date of Evaluation: 12/04/18 Objective - Vital Signs/Intake and Output Vital Signs (last 24 hours): Temp Pulse Resp BP Pulse Ox 974 F H 90 20 126/79 100 12/06/18 20:00 12/06/18 21:40 12/06/18 20:00 12/06/18 21:40 12/06/18 20:00 - Medications Medications: Current Medications Amlodipine Besylate (Norvasc) 10 mg PO DAILY [facility] Last Admin: 12/06/18 08:27 Dose: 10 mg Aspirin (Ecotrin) 81 mg PO DAILY [facility] Last Admin: 12/06/18 08:27 Dose: 81 mg Atorvastatin Calcium (Lipitor) 80 mg PO HS [facility] Last Admin: 12/06/18 21:39 Dose: 80 mg Clonidine HCl (Catapres) 0.1 mg PO Q6H PRN PRN Reason: SBP > 150 Gabapentin (Neurontin) 100 mg PO TID PRN PRN Reason: Anxiety Last Admin: 12/05/18 08:12 Dose: 100 mg Lactulose (Enulose) 20 gm PO BID PRN PRN Reason: Constipation Last Admin: 12/03/18 19:34 Dose: 20 gm Losartan Potassium (Cozaar) 100 mg PO HS [facility] Last Admin: 12/06/18 21:40 Dose: 100 mg Metoclopramide HCl (Reglan) 5 mg PO Q6 PRN PRN Reason: Nausea/Vomiting Last Admin: 11/29/18 12:38 Dose: 5 mg Multivitamins/Minerals (Therapeutic-M Tab) 1 tab PO DAILY [facility] Last Admin: 12/06/18 08:27 Dose: 1 tab Pantoprazole Sodium (Protonix Ec Tab) 20 mg PO 0600,1600 [facility] Last Admin: 12/06/18 16:30 Dose: 20 mg Potassium Chloride (K-Dur 20 Meq Er Tab) 40 meq PO BRK [facility] Last Admin: 12/06/18 08:26 Dose: 40 meq Tramadol HCl (Ultram) 50 mg PO TID PRN PRN Reason: Pain 4-10 Last Admin: 12/06/18 21:43 Dose: 50 mg Trazodone HCl (Desyrel) 100 mg PO HS PRN PRN Reason: Insomnia Last Admin: 12/05/18 21:53 Dose: 100 mg - Labs Labs: 11/25/18 06:29 04/17/19 06:29 Assessment and Plan (1) CVA (cerebral vascular accident) Status: Acute (2) Falls frequently Status: Acute (3) Hypertension Status: Acute (4) Insomnia Status: Acute (5) Opioid abuse Status: Acute (6) Syncope Status: Acute
--- NOTE | 2018-12-07 05:07 | CP.PCM.PN ---
Subjective - Date & Time of Evaluation Date of Evaluation: 12/06/18 Objective - Vital Signs/Intake and Output Vital Signs (last 24 hours): Temp Pulse Resp BP Pulse Ox 974 F H 90 20 126/79 100 12/06/18 20:00 12/06/18 21:40 12/06/18 20:00 12/06/18 21:40 12/06/18 20:00 - Medications Medications: Current Medications Amlodipine Besylate (Norvasc) 10 mg PO DAILY [facility] Last Admin: 12/06/18 08:27 Dose: 10 mg Aspirin (Ecotrin) 81 mg PO DAILY [facility] Last Admin: 12/06/18 08:27 Dose: 81 mg Atorvastatin Calcium (Lipitor) 80 mg PO HS [facility] Last Admin: 12/06/18 21:39 Dose: 80 mg Clonidine HCl (Catapres) 0.1 mg PO Q6H PRN PRN Reason: SBP > 150 Gabapentin (Neurontin) 100 mg PO TID PRN PRN Reason: Anxiety Last Admin: 12/05/18 08:12 Dose: 100 mg Lactulose (Enulose) 20 gm PO BID PRN PRN Reason: Constipation Last Admin: 12/03/18 19:34 Dose: 20 gm Losartan Potassium (Cozaar) 100 mg PO HS [facility] Last Admin: 12/06/18 21:40 Dose: 100 mg Metoclopramide HCl (Reglan) 5 mg PO Q6 PRN PRN Reason: Nausea/Vomiting Last Admin: 11/29/18 12:38 Dose: 5 mg Multivitamins/Minerals (Therapeutic-M Tab) 1 tab PO DAILY [facility] Last Admin: 12/06/18 08:27 Dose: 1 tab Pantoprazole Sodium (Protonix Ec Tab) 20 mg PO 0600,1600 [facility] Last Admin: 12/06/18 16:30 Dose: 20 mg Potassium Chloride (K-Dur 20 Meq Er Tab) 40 meq PO BRK [facility] Last Admin: 12/06/18 08:26 Dose: 40 meq Tramadol HCl (Ultram) 50 mg PO TID PRN PRN Reason: Pain 4-10 Last Admin: 12/06/18 21:43 Dose: 50 mg Trazodone HCl (Desyrel) 100 mg PO HS PRN PRN Reason: Insomnia Last Admin: 12/05/18 21:53 Dose: 100 mg - Labs Labs: 11/25/18 06:29 04/17/19 06:29 Assessment and Plan (1) CVA (cerebral vascular accident) Status: Acute (2) Falls frequently Status: Acute (3) Hypertension Status: Acute (4) Insomnia Status: Acute (5) Opioid abuse Status: Acute (6) Syncope Status: Acute
[2018-12-07] MEDS: Pantoprazole 20 mg EC Tab PO SCH ×2 (07:54→17:01)
[2018-12-07] MEDS: Multivitamin With Minerals Tab PO SCH (08:03)
[2018-12-07] MEDS: Potassium Chloride 20 mEq ER Tab PO SCH (08:04)
[2018-12-07 21:27] VITALS: O2SAT 100
[2018-12-08] MEDS: Pantoprazole 20 mg EC Tab PO SCH ×2 (06:56→16:12)
[2018-12-08] MEDS: Potassium Chloride 20 mEq ER Tab PO SCH (08:38)
[2018-12-08] MEDS: Multivitamin With Minerals Tab PO SCH (08:41)
--- NOTE | 2018-12-08 19:43 | CP.PCM.PN ---
Subjective - Date & Time of Evaluation Date of Evaluation: 12/08/18 Time of Evaluation: 12:00 - Subjective Subjective: no acute complaints of any pain Objective - Vital Signs/Intake and Output Vital Signs (last 24 hours): Temp Pulse Resp BP Pulse Ox 97.0 F L 102 H 20 126/72 100 12/08/18 08:19 12/08/18 08:47 12/08/18 08:19 12/08/18 08:39 12/08/18 08:19 - Medications Medications: Current Medications Amlodipine Besylate (Norvasc) 10 mg PO DAILY [facility] Last Admin: 12/08/18 08:39 Dose: 10 mg Aspirin (Ecotrin) 81 mg PO DAILY [facility] Last Admin: 12/08/18 08:40 Dose: 81 mg Atorvastatin Calcium (Lipitor) 80 mg PO HS [facility] Last Admin: 12/07/18 21:04 Dose: 80 mg Clonidine HCl (Catapres) 0.1 mg PO Q6H PRN PRN Reason: SBP > 150 Diphenhydramine HCl (Benadryl) 25 mg PO HS PRN PRN Reason: Insomnia Last Admin: 12/07/18 21:06 Dose: 25 mg Gabapentin (Neurontin) 100 mg PO TID PRN PRN Reason: Anxiety Last Admin: 12/05/18 08:12 Dose: 100 mg Lactulose (Enulose) 20 gm PO BID PRN PRN Reason: Constipation Last Admin: 12/03/18 19:34 Dose: 20 gm Losartan Potassium (Cozaar) 100 mg PO HS [facility] Last Admin: 12/07/18 21:04 Dose: 100 mg Metoclopramide HCl (Reglan) 5 mg PO Q6 PRN PRN Reason: Nausea/Vomiting Last Admin: 11/29/18 12:38 Dose: 5 mg Multivitamins/Minerals (Therapeutic-M Tab) 1 tab PO DAILY [facility] Last Admin: 12/08/18 08:41 Dose: 1 tab Pantoprazole Sodium (Protonix Ec Tab) 20 mg PO 0600,1600 [facility] Last Admin: 12/08/18 16:12 Dose: 20 mg Tramadol HCl (Ultram) 50 mg PO TID PRN PRN Reason: Pain 4-10 Last Admin: 12/07/18 22:47 Dose: 50 mg Trazodone HCl (Desyrel) 100 mg PO HS PRN PRN Reason: Insomnia Last Admin: 12/05/18 21:53 Dose: 100 mg - Labs Labs: 11/25/18 06:29 11/25/18 06:29 - Constitutional Appears: Well - Head Exam Head Exam: ATRAUMATIC, NORMAL INSPECTION, NORMOCEPHALIC - Eye Exam Eye Exam: EOMI, Normal appearance, PERRL Pupil Exam: NORMAL ACCOMODATION, PERRL - ENT Exam ENT Exam: Mucous Membranes Moist, Normal Exam - Neck Exam Neck Exam: Full ROM, Normal Inspection - Respiratory Exam Respiratory Exam: Clear to Ausculation Bilateral, NORMAL BREATHING PATTERN - Cardiovascular Exam Cardiovascular Exam: REGULAR RHYTHM - GI/Abdominal Exam GI & Abdominal Exam: Soft, Normal Bowel Sounds - Rectal Exam Rectal Exam: NORMAL INSPECTION - Exam External exam: NORMAL EXTERNAL EXAM - Extremities Exam Extremities Exam: Full ROM, Normal Capillary Refill, Normal Inspection - Back Exam Back Exam: NORMAL INSPECTION - Neurological Exam Neurological Exam: Alert, Awake Neuro motor strength exam: Left Upper Extremity: 3, Right Upper Extremity: 3, Left Lower Extremity: 3, Right Lower Extremity: 3 - Psychiatric Exam Psychiatric exam: Normal Affect - Skin Skin Exam: Dry, Normal Color Assessment and Plan (1) Syncope Status: Acute (2) CVA (cerebral vascular accident) Assessment & Plan: plan for team conference for physical, occupational, rec therapy and speech therapy Status: Acute
--- NOTE | 2018-12-08 20:01 | CP.PCM.PN ---
Subjective - Date & Time of Evaluation Date of Evaluation: 12/06/18 Time of Evaluation: 14:00 - Subjective Subjective: no acute complaints of pain Objective - Vital Signs/Intake and Output Vital Signs (last 24 hours): Temp Pulse Resp BP Pulse Ox 97.0 F L 102 H 20 126/72 100 12/08/18 08:19 12/08/18 08:47 12/08/18 08:19 12/08/18 08:39 12/08/18 08:19 - Medications Medications: Current Medications Amlodipine Besylate (Norvasc) 10 mg PO DAILY [facility] Last Admin: 12/08/18 08:39 Dose: 10 mg Aspirin (Ecotrin) 81 mg PO DAILY [facility] Last Admin: 12/08/18 08:40 Dose: 81 mg Atorvastatin Calcium (Lipitor) 80 mg PO HS [facility] Last Admin: 12/07/18 21:04 Dose: 80 mg Clonidine HCl (Catapres) 0.1 mg PO Q6H PRN PRN Reason: SBP > 150 Diphenhydramine HCl (Benadryl) 25 mg PO HS PRN PRN Reason: Insomnia Last Admin: 12/07/18 21:06 Dose: 25 mg Gabapentin (Neurontin) 100 mg PO TID PRN PRN Reason: Anxiety Last Admin: 12/05/18 08:12 Dose: 100 mg Lactulose (Enulose) 20 gm PO BID PRN PRN Reason: Constipation Last Admin: 12/03/18 19:34 Dose: 20 gm Losartan Potassium (Cozaar) 100 mg PO HS [facility] Last Admin: 12/07/18 21:04 Dose: 100 mg Metoclopramide HCl (Reglan) 5 mg PO Q6 PRN PRN Reason: Nausea/Vomiting Last Admin: 11/29/18 12:38 Dose: 5 mg Multivitamins/Minerals (Therapeutic-M Tab) 1 tab PO DAILY [facility] Last Admin: 12/08/18 08:41 Dose: 1 tab Pantoprazole Sodium (Protonix Ec Tab) 20 mg PO 0600,1600 [facility] Last Admin: 12/08/18 16:12 Dose: 20 mg Tramadol HCl (Ultram) 50 mg PO TID PRN PRN Reason: Pain 4-10 Last Admin: 12/07/18 22:47 Dose: 50 mg Trazodone HCl (Desyrel) 100 mg PO HS PRN PRN Reason: Insomnia Last Admin: 12/05/18 21:53 Dose: 100 mg - Labs Labs: 11/25/18 06:29 11/25/18 06:29 - Constitutional Appears: Well - Head Exam Head Exam: ATRAUMATIC, NORMAL INSPECTION, NORMOCEPHALIC - Eye Exam Eye Exam: EOMI, Normal appearance Pupil Exam: NORMAL ACCOMODATION, PERRL - ENT Exam ENT Exam: Mucous Membranes Moist, Normal Exam - Neck Exam Neck Exam: Full ROM, Normal Inspection - Respiratory Exam Respiratory Exam: Clear to Ausculation Bilateral, NORMAL BREATHING PATTERN - Cardiovascular Exam Cardiovascular Exam: REGULAR RHYTHM - GI/Abdominal Exam GI & Abdominal Exam: Normal Bowel Sounds - Rectal Exam Rectal Exam: NORMAL INSPECTION - Exam External exam: NORMAL EXTERNAL EXAM - Back Exam Back Exam: NORMAL INSPECTION - Neurological Exam Neurological Exam: Alert, Awake Neuro motor strength exam: Left Upper Extremity: 3, Right Upper Extremity: 3, Left Lower Extremity: 3, Right Lower Extremity: 3 - Psychiatric Exam Psychiatric exam: Normal Affect - Skin Skin Exam: Dry, Normal Color Assessment and Plan (1) Syncope Status: Acute (2) CVA (cerebral vascular accident) Assessment & Plan: plan to continue with present rehab program Status: Acute
[2018-12-08 20:23] VITALS: PULSE 83
--- NOTE | 2018-12-09 00:41 | CP.PCM.PN ---
Subjective - Date & Time of Evaluation Date of Evaluation: 12/08/18 Objective - Vital Signs/Intake and Output Vital Signs (last 24 hours): Temp Pulse Resp BP Pulse Ox 97.9 F 83 20 138/90 100 12/08/18 20:22 12/08/18 21:29 12/08/18 20:22 12/08/18 21:29 12/08/18 20:22 - Medications Medications: Current Medications Amlodipine Besylate (Norvasc) 10 mg PO DAILY [facility] Last Admin: 12/08/18 08:39 Dose: 10 mg Aspirin (Ecotrin) 81 mg PO DAILY [facility] Last Admin: 12/08/18 08:40 Dose: 81 mg Atorvastatin Calcium (Lipitor) 80 mg PO HS [facility] Last Admin: 12/08/18 21:29 Dose: 80 mg Clonidine HCl (Catapres) 0.1 mg PO Q6H PRN PRN Reason: SBP > 150 Diphenhydramine HCl (Benadryl) 25 mg PO HS PRN PRN Reason: Insomnia Last Admin: 12/08/18 21:28 Dose: 25 mg Gabapentin (Neurontin) 100 mg PO TID PRN PRN Reason: Anxiety Last Admin: 12/05/18 08:12 Dose: 100 mg Lactulose (Enulose) 20 gm PO BID PRN PRN Reason: Constipation Last Admin: 12/03/18 19:34 Dose: 20 gm Losartan Potassium (Cozaar) 100 mg PO HS [facility] Last Admin: 12/08/18 21:29 Dose: 100 mg Metoclopramide HCl (Reglan) 5 mg PO Q6 PRN PRN Reason: Nausea/Vomiting Last Admin: 11/29/18 12:38 Dose: 5 mg Multivitamins/Minerals (Therapeutic-M Tab) 1 tab PO DAILY [facility] Last Admin: 12/08/18 08:41 Dose: 1 tab Pantoprazole Sodium (Protonix Ec Tab) 20 mg PO 0600,1600 [facility] Last Admin: 12/08/18 16:12 Dose: 20 mg Tramadol HCl (Ultram) 50 mg PO TID PRN PRN Reason: Pain 4-10 Last Admin: 12/08/18 21:32 Dose: 50 mg Trazodone HCl (Desyrel) 100 mg PO HS PRN PRN Reason: Insomnia Last Admin: 12/05/18 21:53 Dose: 100 mg - Labs Labs: 11/25/18 06:29 11/25/18 06:29 Assessment and Plan (1) CVA (cerebral vascular accident) Status: Acute (2) Falls frequently Status: Acute (3) Hypertension Status: Acute (4) Insomnia Status: Acute (5) Opioid abuse Status: Acute (6) Syncope Status: Acute
--- NOTE | 2018-12-09 00:41 | CP.PCM.PN ---
Subjective - Date & Time of Evaluation Date of Evaluation: 12/07/18 Objective - Vital Signs/Intake and Output Vital Signs (last 24 hours): Temp Pulse Resp BP Pulse Ox 97.9 F 83 20 138/90 100 12/08/18 20:22 12/08/18 21:29 12/08/18 20:22 12/08/18 21:29 12/08/18 20:22 - Medications Medications: Current Medications Amlodipine Besylate (Norvasc) 10 mg PO DAILY [facility] Last Admin: 12/08/18 08:39 Dose: 10 mg Aspirin (Ecotrin) 81 mg PO DAILY [facility] Last Admin: 12/08/18 08:40 Dose: 81 mg Atorvastatin Calcium (Lipitor) 80 mg PO HS [facility] Last Admin: 12/08/18 21:29 Dose: 80 mg Clonidine HCl (Catapres) 0.1 mg PO Q6H PRN PRN Reason: SBP > 150 Diphenhydramine HCl (Benadryl) 25 mg PO HS PRN PRN Reason: Insomnia Last Admin: 12/08/18 21:28 Dose: 25 mg Gabapentin (Neurontin) 100 mg PO TID PRN PRN Reason: Anxiety Last Admin: 12/05/18 08:12 Dose: 100 mg Lactulose (Enulose) 20 gm PO BID PRN PRN Reason: Constipation Last Admin: 12/03/18 19:34 Dose: 20 gm Losartan Potassium (Cozaar) 100 mg PO HS [facility] Last Admin: 12/08/18 21:29 Dose: 100 mg Metoclopramide HCl (Reglan) 5 mg PO Q6 PRN PRN Reason: Nausea/Vomiting Last Admin: 11/29/18 12:38 Dose: 5 mg Multivitamins/Minerals (Therapeutic-M Tab) 1 tab PO DAILY [facility] Last Admin: 12/08/18 08:41 Dose: 1 tab Pantoprazole Sodium (Protonix Ec Tab) 20 mg PO 0600,1600 [facility] Last Admin: 12/08/18 16:12 Dose: 20 mg Tramadol HCl (Ultram) 50 mg PO TID PRN PRN Reason: Pain 4-10 Last Admin: 12/08/18 21:32 Dose: 50 mg Trazodone HCl (Desyrel) 100 mg PO HS PRN PRN Reason: Insomnia Last Admin: 12/05/18 21:53 Dose: 100 mg - Labs Labs: 11/25/18 06:29 11/25/18 06:29 Assessment and Plan (1) CVA (cerebral vascular accident) Status: Acute (2) Falls frequently Status: Acute (3) Hypertension Status: Acute (4) Insomnia Status: Acute (5) Opioid abuse Status: Acute (6) Syncope Status: Acute
[2018-12-09 06:20] LABS: BLOOD UREA NITROGEN 18 mg/dl (7-17); CALCIUM 9.9 mg/dL (8.4-10.2); GFR NON-AFRICAN AMERICAN > 60
[2018-12-09] MEDS: Pantoprazole 20 mg EC Tab PO SCH (06:28)
[2018-12-09 08:20] VITALS: BP 130/84; RESP 21; TEMP 98.4
[2018-12-09] MEDS: Multivitamin With Minerals Tab PO SCH (08:29)
--- NOTE | 2018-12-09 13:19 | CP.PCM.PN ---
Subjective - Date & Time of Evaluation Date of Evaluation: 12/09/18 Time of Evaluation: 10:00 - Subjective Subjective: no acute complaints Objective - Vital Signs/Intake and Output Vital Signs (last 24 hours): Temp Pulse Resp BP Pulse Ox 98.4 F 83 21 130/84 100 12/09/18 08:19 12/09/18 08:29 12/09/18 08:19 12/09/18 08:29 12/09/18 08:19 - Medications Medications: Current Medications Amlodipine Besylate (Norvasc) 10 mg PO DAILY [facility] Last Admin: 12/09/18 08:29 Dose: 10 mg Aspirin (Ecotrin) 81 mg PO DAILY [facility] Last Admin: 12/09/18 08:28 Dose: 81 mg Atorvastatin Calcium (Lipitor) 80 mg PO HS [facility] Last Admin: 12/08/18 21:29 Dose: 80 mg Clonidine HCl (Catapres) 0.1 mg PO Q6H PRN PRN Reason: SBP > 150 Diphenhydramine HCl (Benadryl) 25 mg PO HS PRN PRN Reason: Insomnia Last Admin: 12/08/18 21:28 Dose: 25 mg Gabapentin (Neurontin) 100 mg PO TID PRN PRN Reason: Anxiety Last Admin: 12/05/18 08:12 Dose: 100 mg Lactulose (Enulose) 20 gm PO BID PRN PRN Reason: Constipation Last Admin: 12/03/18 19:34 Dose: 20 gm Losartan Potassium (Cozaar) 100 mg PO HS [facility] Last Admin: 12/08/18 21:29 Dose: 100 mg Metoclopramide HCl (Reglan) 5 mg PO Q6 PRN PRN Reason: Nausea/Vomiting Last Admin: 11/29/18 12:38 Dose: 5 mg Multivitamins/Minerals (Therapeutic-M Tab) 1 tab PO DAILY [facility] Last Admin: 12/09/18 08:29 Dose: 1 tab Pantoprazole Sodium (Protonix Ec Tab) 20 mg PO 0600,1600 [facility] Last Admin: 12/09/18 06:28 Dose: 20 mg Tramadol HCl (Ultram) 50 mg PO TID PRN PRN Reason: Pain 4-10 Last Admin: 12/08/18 21:32 Dose: 50 mg Trazodone HCl (Desyrel) 100 mg PO HS PRN PRN Reason: Insomnia Last Admin: 12/05/18 21:53 Dose: 100 mg - Labs Labs: 11/25/18 06:29 12/09/18 05:35 - Constitutional Appears: Well - Head Exam Head Exam: ATRAUMATIC, NORMAL INSPECTION, NORMOCEPHALIC - Eye Exam Eye Exam: EOMI, Normal appearance, PERRL Pupil Exam: NORMAL ACCOMODATION, PERRL - ENT Exam ENT Exam: Mucous Membranes Moist, Normal Exam - Neck Exam Neck Exam: Full ROM, Normal Inspection - Respiratory Exam Respiratory Exam: Clear to Ausculation Bilateral, NORMAL BREATHING PATTERN - Cardiovascular Exam Cardiovascular Exam: REGULAR RHYTHM - GI/Abdominal Exam GI & Abdominal Exam: Soft, Normal Bowel Sounds - Rectal Exam Rectal Exam: NORMAL INSPECTION - Exam External exam: NORMAL EXTERNAL EXAM - Extremities Exam Extremities Exam: Full ROM, Normal Capillary Refill, Normal Inspection - Back Exam Back Exam: NORMAL INSPECTION - Neurological Exam Neurological Exam: Alert, Awake Neuro motor strength exam: Left Upper Extremity: 3, Right Upper Extremity: 3, Left Lower Extremity: 3, Right Lower Extremity: 3 - Psychiatric Exam Psychiatric exam: Normal Affect, Normal Mood - Skin Skin Exam: Dry Assessment and Plan (1) Syncope Status: Acute (2) CVA (cerebral vascular accident) Assessment & Plan: status post therapies for DC today follow up with PMD and services after Discharge Status: Acute
== END 2018-12-09 16:15 | disposition home health service (06) | DRG 57 ==
PROVIDERS: ADMIT Internal Medicine; ATTEND Internal Medicine
PROC: F07Z9FZ Gait Training/Functional Ambulation Treatment using Assistive, Adaptive, Supportive or Protective Equipment (ICD-10-PCS; principal; 2018-11-24)
PROC: F08Z4FZ Home Management Treatment using Assistive, Adaptive, Supportive or Protective Equipment (ICD-10-PCS; 2018-11-24)
PROC: F07M6FZ Therapeutic Exercise Treatment of Musculoskeletal System - Whole Body using Assistive, Adaptive, Supportive or Protective Equipment (ICD-10-PCS; 2018-11-25)
PROC: 3E02340 Introduction of Influenza Vaccine into Muscle, Percutaneous Approach (ICD-10-PCS; 2018-11-25)
PROC: 3E0234Z Introduction of Serum, Toxoid and Vaccine into Muscle, Percutaneous Approach (ICD-10-PCS; 2018-11-25)
DX: I69.198 Other sequelae of nontraumatic intracerebral hemorrhage (principal); F11.20 Opioid dependence, uncomplicated; R26.89 Other abnormalities of gait and mobility; R29.6 Repeated falls; F41.8 Other specified anxiety disorders; I10 Essential (primary) hypertension; G47.00 Insomnia, unspecified; B18.2 Chronic viral hepatitis C; F17.210 Nicotine dependence, cigarettes, uncomplicated; Z23 Encounter for immunization; Z91.81 History of falling; Z87.81 Personal history of (healed) traumatic fracture; Z87.828 Personal history of other (healed) physical injury and trauma